=== PATIENT | female | born 1950 | race Caucasian/White ===

== ENCOUNTER 2017-07-14 14:22 | Inpatient (IN) | payer MEDICARE ==
[2017-07-14 15:29] LABS: Base Excess-Venous -12.5 mmol/L (-30.0-30.0); Bicarbonate (HCO3v) 16.3 mmol/L (1.0-85.0); Hemoglobin - Calc 19.3 g/dL (12.0-18.0); O2 Tension (PvO2) 23.4 mmHg (35.0-45.0); Potassium 6.2 mmol/L (3.4-4.7); T. Carbon Dioxide 17.7 mmol/L (1.0-85.0); pH (Venous) 7.157 (7.35-7.45); vO2 Saturation-calc 27.6 % (0.0-100.0)
--- NOTE | 2017-07-14 15:39 | RAD ---
FRONTAL VIEW CHEST: COMPARISON: 08/23/13. INDICATION: Hyperglycemia. FINDINGS: There is mild linear density at the lung bases indicating volume loss. Elevation of the right hemidi aphragm. Cardiac silhouette is stable. No additional significant interval change. There is partial ly imaged hardware at the cervicothoracic junction. IMPRESSION: 1. Probable bibasilar atelectasis. 2. Elevated right hemidiaphragm. POS: [facility]
[2017-07-14 15:48] LABS: Troponin I 0.197 ng/mL (< 0.028)
[2017-07-14 15:52] LABS: CKMB 7.2 ng/mL (0-6.6)
[2017-07-14 15:54] LABS: ALT (SGPT) 57 U/L (8-55); AST (SGOT) 129 U/L (5-34); Albumin 4.2 g/dL (3.4-4.8); Alkaline Phosphatase 113 U/L (40-150); Anion Gap 37 mmol/L (10-20); BUN (Urea Nitrogen) 45 mg/dL (9.8-20.1); Bilirubin, Total 1.1 mg/dL (0.2-1.2); CK (CPK) 913 U/L (29-168); Calc. Creatinine Clearance 0 mL/min (70-130); Calcium 10.2 mg/dL (7.8-10.44); Carbon Dioxide 12 mmol/L (23-31); Chloride 96 mmol/L (98-107); Estimated GFR-MDRD 10; Globulin 4.2 g/dL (2.4-3.5); Potassium 3.8 mmol/L (3.5-5.1); Protein, Total 8.4 g/dL (6.0-8.3); Sodium 141 mmol/L (136-145)
[2017-07-14 15:56] LABS: Glucose 752 mg/dL (80-115)
[2017-07-14 15:58] LABS: Lipase 3682 U/L (8-78)
--- NOTE | 2017-07-14 16:14 | CT ---
HEAD CT NONCONTRAST 07/14/17 INDICATION: Altered mental status and hyperglycemia. FINDINGS: There is no evidence of intracranial hemorrhage, mass effect or midline shift. Mild generalized paren chymal volume loss is present. There is slight compensatory dilatation of the ventricular system. Mil d scattered areas of hypoattenuation are present most consistent with minimal chronic microvascular i schemic disease. Punctate nonspecific focus of decreased density is seen at the posterior right idris sula which may be on the basis of a small area of gliosis. IMPRESSION: No acute intracranial hemorrhage, mass effect. Findings most consistent with mild chronic microvascular ischemic disease. POS: [facility]
[2017-07-14 16:23] LABS: #Basophils 0.2 thou/uL (0.0-0.2); #Lymphocytes 0.8 thou/uL (1.20-3.40); #Monocytes 0.4 thou/uL (0.11-0.59); #Neutrophils 8.6 thou/uL (1.40-6.50); %Basophils 1.7 % (0.0-1.0); %Eosinophils 0.2 % (0.0-10.0); %Lymphocytes 7.8 % (21.0-51.0); %Monocytes 4.2 % (0.0-10.0); Hemoglobin 15.5 g/dL (12.0-16.0); Mean Corpuscular HGB CONC 32.9 g/dL (32.0-36.0); Mean Corpuscular Hemoglobin 33.2 pg (27.0-31.0); Mean Platelet Volume 10.3 fL (7.4-10.4); Platelet Count 235 thou/uL (130-400); RBC Distribution Width 13.2 % (11.5-14.5); Red Blood Cell (RBC) Count 4.66 mill/uL (4.20-5.40)
--- NOTE | 2017-07-14 16:28 | RAD ---
CHEST ONE VIEW 07/14/17 HISTORY: Central line placement. COMPARISON: Chest one view 07/14/17. FINDINGS: Central venous catheter is present with tip in the inferior SVC. Fullness of the hilum is present ana aterally as well as pleural air space opacities. IMPRESSION: Satisfactory placement of central venous catheter without complication. POS: [facility]
[2017-07-14 16:29] LABS: INR-International Normal Ratio 1.2; Prothrombin Time 15.9 SEC (12.0-14.7)
[2017-07-14] MEDS ORDERED: Insulin Regular 100 units/100 ml in NS IVPB SCH (16:30)
[2017-07-14 16:45] LABS: D-Dimer Test 5.82 *mcg/mL (0.27-0.43)
[2017-07-14] MEDS ORDERED: Piperacillin/Tazobactam 4.5 GM in Sodium Chloride 0.9% 100 ML IVPB SCH (16:45)
--- NOTE | 2017-07-14 17:47 | ULT ---
ULTRASOUND GALLBLADDER 07/14/17 HISTORY: Pancreatitis. COMPARISON: None. FINDINGS: Pancreas is not well seen. Increased hepatic echotexture. Liver measures 17.2 cm in length. Main portal vein is patent. Antegrade flow. Common bile duct is nor mal in size. There is gallbladder sludge. The gallbladder wall is normal in thickness. No pericholecystic fluid. R ight kidney measures 11.8 x 4.9 cm x 5.2 cm without mass, hydronephrosis or abnormal calcifications. Sonographic Suresh's sign is noted be determined by the technologist. IMPRESSION: 1. No evidence of choledocholithiasis or acute cholecystitis. 2. Diffuse hepatic increased echotexture suggesting steatosis or hepatocellular disease. POS: [facility]
[2017-07-14] MEDS ORDERED: Enoxaparin Sodium 80 MG/0.8 ML SYRINGE ONE (18:09)
[2017-07-14 18:34] LABS: Bilirubin Moderate (Negative); Blood, Urine Large (Negative); Clarity CLOUDY (Clear); Glucose, Urine (Dipstick) >=1000 mg/dL (Negative); Leukocyte Small (Negative); Nitrite Negative (Negative); Protein, Urine (Dipstick) 100 mg/dL (Neg-Trace); Specific Gravity, Urine 1.029 (1.002-1.036); pH, Urine 5.5 (5.0-9.0)
[2017-07-14 18:38] LABS: Troponin I 0.156 ng/mL (< 0.028)
[2017-07-14 18:39] LABS: Bacteria/HPF 4+ HPF (None Seen); Squamous Epithelial 0-3 HPF (0-3)
[2017-07-14 18:40] LABS: Yeast-AUWi Flag 190.1 (0-25.0)
[2017-07-14 18:48] LABS: Hyaline Casts/LPF 0-3 HYALINE CAST LPF (0-3 Hyaline); Manual Microscopic Reviewed? No Path Casts Seen; Yeast-All Forms None Seen HPF (None Seen)
[2017-07-14] MEDS ORDERED: Ondansetron HCl/PF 4 MG/2 ML Vial ONE (18:51)
[2017-07-14] MEDS ORDERED: CCU Electrolyte Replacement 1 EACH IVPB ONE (19:15)
[2017-07-14] MEDS ORDERED: Dextrose 5 %-0.45 % NaCl 1,000 ML IV PRN (19:15)
[2017-07-14] MEDS ORDERED: Sodium Chloride 0.9% 1,000 ML IV PRN ×4 (19:15)
[2017-07-14] MEDS ORDERED: NS 0.9% w/ 20 MEQ KCL 1,000 ML IV PRN ×2 (19:15)
[2017-07-14] MEDS ORDERED: Ondansetron HCl/PF 4 MG/2 ML Vial IVP PRN (19:15)
[2017-07-14] MEDS ORDERED: Pantoprazole 40 MG VIAL ONE (19:46)
[2017-07-14] MEDS ORDERED: Promethazine HCl 25 MG/ML VIAL ONE (19:46)
[2017-07-14 19:57] LABS: Anion Gap 21 mmol/L (10-20); BUN (Urea Nitrogen) 46 mg/dL (9.8-20.1); Calc. Creatinine Clearance 0 mL/min (70-130); Calcium 8.6 mg/dL (7.8-10.44); Carbon Dioxide 17 mmol/L (23-31); Chloride 105 mmol/L (98-107); Estimated GFR-MDRD 12; Glucose 602 mg/dL (80-115); Potassium 3.2 mmol/L (3.5-5.1); Sodium 140 mmol/L (136-145)
[2017-07-14 19:58] LABS: Troponin I 0.161 ng/mL (< 0.028)
[2017-07-14] MEDS ORDERED: Morphine 4 MG/ML VIAL ONE (20:17)
[2017-07-14] MEDS ORDERED: Magnesium 2 GM/NS 0.9% 100 ML 2 GM in Premix Bag 1 BAG IVPB PRN (20:46)
[2017-07-14] MEDS ORDERED: Potassium Phosphate 9 MMOL in Sodium Chloride 0.9% 100 ML IVPB PRN (20:46)
[2017-07-14] MEDS ORDERED: Potassium Chloride 20 MEQ TAB PO PRN (20:46)
[2017-07-14] MEDS ORDERED: Potassium Phosphate 12 MMOL in Sodium Chloride 0.9% 250 ML 250 ML IV PRN (20:46)
[2017-07-14] MEDS ORDERED: Potassium Phosphate 15 MMOL in Sodium Chloride 0.9% 250 ML 250 ML IV PRN (20:46)
[2017-07-14] MEDS ORDERED: Magnesium Oxide 400 MG TAB PO PRN ×2 (20:46)
[2017-07-14] MEDS ORDERED: CCU ELECTROLYTE REPLACEMENT PROTOCOL FS PRN (20:46)
[2017-07-14] MEDS ORDERED: Potassium Chloride 40 MEQ in Sodium Chloride 0.9% 250 ML 250 ML IVPB PRN (20:46)
[2017-07-14] MEDS ORDERED: Potassium Chloride 40 MEQ in Premix Bag 1 BAG IVPB PRN (20:46)
[2017-07-14] MEDS ORDERED: Morphine 4 MG/ML VIAL SLOW IVP PRN (20:49)
[2017-07-14] MEDS ORDERED: Acetaminophen 1,000 MG in Premix Bag 1 BAG IVPB PRN (20:50)
[2017-07-14 20:54] LABS: Troponin I 0.152 ng/mL (< 0.028)
[2017-07-14 20:56] LABS: CKMB 9.5 ng/mL (0-6.6)
--- NOTE | 2017-07-14 22:00 | HP ---
DATE OF ADMISSION: 07/14/2017 TIME OF SERVICE: 1715 hours. CHIEF COMPLAINT: Altered mental status. HISTORY OF PRESENT ILLNESS: Ms. Troy is a 67-year-old Latin-[place]ian female with a history of atria l fibrillation, depression, fibromyalgia and apparently alcohol abuse who was [facility] for not acting herself and may having decreased level of conscious. She does have increased gluco se in the 700 range, she is also noted to have SVT in the field and altered mental status, so they ca lled her unstable into the DC cardioversion. After that, she was more arousable. She has been ill with flu-like illness for the last week or so with cough, phlegm and congestion. Pe r family, they have heard from her significant other that she has not really had any of the one that she normally drinks at night. She does have a history of chronic alcohol use. She has been drinking 5 to 10 glasses of wine or bee rs every day for a long time and really goes more than a day without a drink. Unknown she has any fevers or chills, the patient is unable to give any further history. PAST MEDICAL HISTORY: 1. Atrial fibrillation. 2. Fibromyalgia. 3. Depression. PAST SURGICAL HISTORY: Includes spinal fusion. HOME MEDICATIONS: Per the family's bag of medications they brought in: 1. Losartan/HCTZ 04/19.5 one p.o. b.i.d. 2. Lyrica 150 mg p.o. b.i.d. 3. Metoprolol tartrate 50 mg p.o. b.i.d. 4. Trazodone 50 mg p.o. at bedtime. 5. Duloxetine 60 mg daily. 6. Buspirone 10 mg p.o. b.i.d. 7. Tizanidine 4 mg p.o. t.i.d. p.r.n. for muscle spasm. 8. Ambien 10 mg p.o. at bedtime. ALLERGIES: NKDA. FAMILY HISTORY: Unknown. Family is with her, reports no history of clotting or bleeding disorder, n o immune dysfunction. SOCIAL HISTORY: History of alcohol use as above. She uses no tobacco, no history of IV drug use. REVIEW OF SYSTEMS: A 10-point review of systems not obtainable due to altered mental status. PHYSICAL EXAMINATION: VITAL SIGNS: Temperature on my evaluation 98.2, pulse 106, blood pressure 155/90, respiratory rate 3 0, satting 95% on 2 liters. Since then she has spiked a temperature to 100.8. GENERAL: She is somnolent, she does stare with arousal and groans. She is in no acute distress. HEENT: Normocephalic, atraumatic. Pupils equal and reactive to light bilaterally, mucous membranes are moist. NECK: Supple, without lymphadenopathy, JVD, or thyromegaly. She has normal carotid upstrokes. I do not appreciate bruits. LUNGS: Clear bilaterally. She has no wheezes, no rales or rhonchi. CARDIOVASCULAR: She is tachycardic, but regular. I do not appreciate murmurs. ABDOMEN: Diffusely tender. She does grimace and groans with a light or deep palpation. No signs or rebound. There is no rigidity. No involuntary guarding. EXTREMITIES: Show no cyanosis, no clubbing. She has had no edema. SKIN: Warm, moist, and well perfused. MUSCULOSKELETAL: Normal to inspection without any joint inflammation or effusions. NEUROLOGIC: Not really testable. She is moving all 4 extremities, withdraws from pain. She does st are to verbal stimuli. LABORATORY EVALUATION: Sodium of 141, potassium 3.8, chloride 96, bicarbonate 12, BUN 45, creatinine 4.46 and no history of kidney disease. Glucose was 752. Alkaline phosphatase was 129, AST elevated at 57, ALT normal. CBC showed a white count of 10, hemoglobin 15.5, hematocrit of 47.0, and platele t count was 230,000. She has 86% granulocytosis. D-dimer was elevated at 5.82. INR was 1.2. CK was elevated at 913, MB fraction elevated at 7.2, tro ponin I abnormal at 0.192. BNP was 292.6. Lipase elevated at 3682. Lactic acid 8.1 and anion gap was 37. VBG: pH of 7.16, pCO2 of 46, pO2 of 23 and bicarbonate of 16. Beta hydroxybutyrate was 1.00. RADIOGRAPHIC STUDIES: Chest x-ray showed elevated right hemidiaphragm, otherwise negative. She had a CT scan of the brain that was unremarkable. Repeat chest x-ray showed good placement of her right subclavian central venous catheter. ASSESSMENT AND PLAN: 1. Diabetic ketoacidosis protocol. Insulin drip, IV fluids, labs. We will convert to a step 2 and 3 as she progresses. 2. Severe metabolic acidosis. 3. Probable alcohol withdrawal: She has not had a drink in over a week. 4. Atrial flutter/atrial fibrillation, status post DC cardioversion in the field. She currently in sinus tachycardia. We will continue to watch. She does have a history in recent [facility] of being o n [place]. We will continue to watch on telemetry. 5. Metabolic encephalopathy: Likely secondary to diabetic ketoacidosis, we will continue to treat a nd then monitor. 6. Acute kidney injury: Creatinine of 4.46. Family relates no history of kidney problems in the ut st. We will continue hydration very closely and watch. May need to get Renal involved. The patient will be admitted to the IMCU.
[2017-07-14 23:39] LABS: Anion Gap 18 mmol/L (10-20); BUN (Urea Nitrogen) 47 mg/dL (9.8-20.1); Calc. Creatinine Clearance 0 mL/min (70-130); Calcium 8.3 mg/dL (7.8-10.44); Carbon Dioxide 19 mmol/L (23-31); Chloride 113 mmol/L (98-107); Estimated GFR-MDRD 13; Glucose 332 mg/dL (80-115); Potassium 3.1 mmol/L (3.5-5.1); Sodium 147 mmol/L (136-145)
[2017-07-14] MEDS ORDERED: Morphine 2 MG/ML SYRINGE ONE (23:45)
[2017-07-15] MEDS: D5 1/2 NS w/20 mEq KCL 1,000 ML IV PRN ×5 (00:46→21:01)
[2017-07-15 00:49] LABS: Lactic Acid 3.2 mmol/L (0.5-2.2)
[2017-07-15] MEDS: Sodium Chloride 0.9% 1,000 ML IV SCH (01:18)
[2017-07-15] MEDS: Famotidine/PF 20 mg/2ml Vial SLOW IVP SCH ×3 (01:20→20:49)
[2017-07-15 02:03] VITALS: BMI 29.1
[2017-07-15 05:06] LABS: Troponin I 0.235 ng/mL (< 0.028)
[2017-07-15 05:08] LABS: CKMB 8.8 ng/mL (0-6.6); Critical Call CKMBM RESULT DECREASING
[2017-07-15 05:10] LABS: ALT (SGPT) 71 U/L (8-55); AST (SGOT) 385 U/L (5-34); Albumin 2.9 g/dL (3.4-4.8); Alkaline Phosphatase 80 U/L (40-150); Anion Gap 16 mmol/L (10-20); BUN (Urea Nitrogen) 47 mg/dL (9.8-20.1); Calc. Creatinine Clearance 20 mL/min (70-130); Calcium 8.2 mg/dL (7.8-10.44); Carbon Dioxide 20 mmol/L (23-31); Cardiac Risk 5.6 (Less than 4.5); Chloride 114 mmol/L (98-107); Cholesterol 96 mg/dl (< 200 Desired); Estimated GFR-MDRD 13; Globulin 2.8 g/dL (2.4-3.5); Glucose 163 mg/dL (80-115); HDL Cholesterol 17 mg/dL (>60 Neg Risk); LDL Cholesterol, Calculated 42 mg/dL; Potassium 3.3 mmol/L (3.5-5.1); Protein, Total 5.7 g/dL (6.0-8.3); Sodium 147 mmol/L (136-145); Triglycerides 183 mg/dL (Less than 150)
[2017-07-15 05:18] LABS: Band 14 % (5-11); Hemoglobin 14.1 g/dL (12.0-16.0); Lymphocytes 11 % (21-51); MDiff Complete? YES; Mean Corpuscular HGB CONC 34.4 g/dL (32.0-36.0); Mean Corpuscular Hemoglobin 33.7 pg (27.0-31.0); Mean Corpuscular Volume 98.1 fl (81.0-99.0); Mean Platelet Volume 9.1 fL (7.4-10.4); Monocytes 5 % (0-10); Neutrophil 70 % (42-75); Platelet Count 194 thou/uL (130-400); Red Blood Cell (RBC) Count 4.17 mill/uL (4.20-5.40); White Blood Cell (WBC) Count 7.6 thou/uL (4.8-10.8)
[2017-07-15] MEDS ORDERED: FLU VACC TS2017-18 (>65YR) 0.5 ML SYRINGE IM ONE (09:00)
[2017-07-15] MEDS ORDERED: Prevnar 13-Val Conj/PF 0.5 ML SYRINGE IM ONE (09:00)
[2017-07-15] MEDS ORDERED: Diazepam 5 MG TAB PO PRN (10:27)
[2017-07-15] MEDS ORDERED: Diazepam 5 MG TAB PO SCH (11:00)
[2017-07-15] MEDS ORDERED: Thiamine HCl 200 MG/2 ML VIAL IM SCH (11:00)
[2017-07-15] MEDS ORDERED: hydrALAZINE 20 MG/ML VIAL SLOW IVP PRN (12:59)
--- NOTE | 2017-07-15 15:01 | CT ---
CT ABDOMEN AND PELVIS WITHOUT CONTRAST: Technique: Multiple axial tomograms were obtained through the abdomen and pelvis without IV enhanceme nt. History: Pancreatitis. Sepsis. Abdominal pain. FINDINGS: Images through the lung bases reveal bibasilar atelectasis or infiltrate, more prominent in the right posterior lung base. Liver and spleen are unremarkable. The pancreas shows no significant peripancreatic edema. Some minim al peripancreatic stranding is seen which may represent mild changes of pancreatitis. Gallbladder is slightly distended. Correlation with gallbladder ultrasound from last p.m. revealed no evidence of gallstones. The adrenal glands and kidneys are unremarkable. No hydronephrosis. Small bowel loops show mild nonspecific distention without dilatation. Small amount of free fluid is seen in the lower abdomen and pelvis. There is evidence of mural thickening in the region of the cecum. This is poorly evaluated due to non -distension and lack of contrast opacification. Aorta is normal caliber. No significant adenopathy is seen. There is mural thickening noted in the region of the gastric antrum and first portion of the duodenum . This may reflect inflammatory change from the pancreatitis. Images through the pelvis show unremarkable uterus and adnexa. Small amount of free fluid in the left pelvis. IMPRESSION: 1. Bibasilar atelectasis and/or infiltrates slightly more prominent on the right. 2. Very mild peripancreatic stranding may represent early changes of pancreatitis if clinical and lab oratory values indicate pancreatitis. 3. There is associated mural thickening in the region of the gastric antrum. This may be secondary to the pancreatic inflammation. 4. Abnormal density and question mural thickening in the region of the cecum. This should be cleared with elective colonoscopy. 5. Small amount of free fluid in the lower abdomen and pelvis. POS: [facility]
--- NOTE | 2017-07-15 16:11 | PDOC.PN ---
- Subjective Encounter Start Date: 07/15/17 Encounter Start Time: 08:40 -: non-verbal Pt more arousable, admits to abd pain. Maintained on D5NS. Afebrile until now , 101. NO CP, no reports or resp issues. occasional blood in stool. no other acute events notes - Objective Resuscitation Status: Resuscitation Status FULL:Full Resuscitation MAR Reviewed: Yes Vital Signs & Weight: Vital Signs (12 hours) Temp Pulse Resp BP Pulse Ox 07/15/17 15:30 98.6 F 117 H 20 178/100 H 97 07/15/17 11:41 99.7 F H 89 20 185/100 H 94 L 07/15/17 08:00 100.2 F H 115 H 19 97 07/15/17 07:00 100.2 F H 115 H 19 189/91 H 97 07/15/17 04:12 92 L Weight Weight 180 lb 11.2 oz I&O: 07/14/17 07/15/17 07/16/17 06:59 06:59 06:59 Intake Total 1540 1500 Output Total 160 210 Balance 1380 1290 Result Diagrams: 07/16/17 04:26 07/16/17 04:26 Additional Labs: Accuchecks 07/15/17 07/15/17 07/15/17 06:05 05:10 04:18 POC Glucose 133 H 134 H 153 H 07/15/17 07/15/17 07/15/17 03:07 01:53 00:43 POC Glucose 204 H 221 H 200 H 07/14/17 07/14/17 07/14/17 23:23 22:13 21:14 POC Glucose 281 H 351 H 414 H 07/14/17 07/14/17 07/14/17 20:15 19:00 17:57 POC Glucose 441 H 526 H Greater than 550 H* Radiology Reviewed by me: Yes EKG Reviewed by me: Yes Phys Exam - Physical Examination ill-appearing, arousable HEENT: PERRLA, moist MMs, sclera anicteric, oral pharynx no lesions Neck: no nodes, no JVD, supple, full ROM coarse bilaterla BS, basilar crackles, poor effort Cardiovascular: no significant murmur, no rub tachy, regular Gastrointestinal: soft, no distention, positive bowel sounds diffusely tender, no R/R/G Musculoskeletal: pulses present, edema present Neurological: moves all 4 limbs Lymphatic: no nodes Skin: no rash, normal turgor, cap refill <2 seconds Dx/Plan (1) DKA (diabetic ketoacidoses) Code(s): E13.10 - OTH DIABETES MELLITUS WITH KETOACIDOSIS WITHOUT COMA Status : Acute Qualifiers: Diabetes mellitus type: type 2 Diabetes mellitus complication detail: without coma Qualified Code(s): E11.10 - Type 2 diabetes mellitus with ketoacidosis without coma Comment: pt arousable, Gap close,d but not able totake po. CCM with D5NS, and insulin gtt. will image belly today. (2) Acute pancreatitis Code(s): K85.90 - ACUTE PANCREATITIS WITHOUT NECROSIS OR INFECTION, UNSP Status: Acute Qualifiers: Pancreatitis type: unspecified pancreatitis type Acute pancreatitis complication: unspecified Qualified Code(s): K85.90 - Acute pancreatitis without necrosis or infection, unspecified Comment: follow up on CT (3) ETOH abuse Code(s): F10.10 - ALCOHOL ABUSE, UNCOMPLICATED Status: Chronic (4) Alcohol withdrawal delirium Code(s): F10.231 - ALCOHOL DEPENDENCE WITH WITHDRAWAL DELIRIUM Status: Acute Comment: no drink in almost a week, ASE protocol initiated (5) SVT (supraventricular tachycardia) Code(s): I47.1 - SUPRAVENTRICULAR TACHYCARDIA Status: Resolved (6) Atrial fibrillation status post cardioversion Code(s): I48.91 - UNSPECIFIED ATRIAL FIBRILLATION Status: Resolved Comment: cardioverted in the field prior to EMS bringing to ER (7) Acute hypoxemic respiratory failure Code(s): J96.01 - ACUTE RESPIRATORY FAILURE WITH HYPOXIA Status: Acute (8) Severe sepsis Code(s): A41.9 - SEPSIS, UNSPECIFIED ORGANISM; R65.20 - SEVERE SEPSIS WITHOUT SEPTIC SHOCK Status: Acute Comment: Fever, tachycardia, elevated WBC, elevated lactic acid. (9) LGI bleed Code(s): K92.2 - GASTROINTESTINAL HEMORRHAGE, UNSPECIFIED Status: Acute Comment: episodic BRBPR. H/H stable, get serial H/H, GI consulted (10) BJ (acute kidney injury) Code(s): N17.9 - ACUTE KIDNEY FAILURE, UNSPECIFIED Status: Acute Comment: Cr down, CCM with hydration - Plan cont current plan of care, plan discussed w/ family, continue antibiotics, respiratory therapy, DVT proph w/SCDs * .
[2017-07-15 17:52] LABS: Hemoglobin 14.7 g/dL (12.0-16.0)
[2017-07-16 00:31] LABS: Hemoglobin 14.3 g/dL (12.0-16.0)
[2017-07-16] MEDS: D5 1/2 NS w/20 mEq KCL 1,000 ML IV PRN ×4 (01:40→20:37)
[2017-07-16] MEDS ORDERED: Diazepam 5 MG TAB PO PRN (04:00)
[2017-07-16 05:04] LABS: Hemoglobin 14.6 g/dL (12.0-16.0)
[2017-07-16 05:28] LABS: Anion Gap 14 mmol/L (10-20); BUN (Urea Nitrogen) 38 mg/dL (9.8-20.1); Calc. Creatinine Clearance 25 mL/min (70-130); Calcium 8.1 mg/dL (7.8-10.44); Carbon Dioxide 18 mmol/L (23-31); Chloride 112 mmol/L (98-107); Estimated GFR-MDRD 17; Glucose 177 mg/dL (80-115); Lipase 209 U/L (8-78); Potassium 3.7 mmol/L (3.5-5.1); Sodium 140 mmol/L (136-145)
[2017-07-16] MEDS ORDERED: Magnesium 2 GM/NS 0.9% 100 ML 2 GM in Premix Bag 1 BAG IVPB SCH (07:00)
[2017-07-16 07:28] LABS: Mean Corpuscular HGB CONC 31.4 g/dL (32.0-36.0); Mean Corpuscular Hemoglobin 31.1 pg (27.0-31.0); Mean Corpuscular Volume 99.2 fl (81.0-99.0); Mean Platelet Volume 9.2 fL (7.4-10.4); Platelet Count 149 thou/uL (130-400); RBC Distribution Width 13.6 % (11.5-14.5); Red Blood Cell (RBC) Count 4.55 mill/uL (4.20-5.40); White Blood Cell (WBC) Count 8.1 thou/uL (4.8-10.8)
[2017-07-16 07:39] LABS: Band 58 % (5-11); Lymphocytes 12 % (21-51); MDiff Complete? YES; Metamyelocyte 1 % (0-0); Monocytes 2 % (0-10); Neutrophil 22 % (42-75); Nucleated RBC 2 % (0); PLT Morphology Comment Appears Adequate; Reactive Lymphocytes 5 % (0-10); Vacuoles SLIGHT
[2017-07-16] MEDS: Famotidine/PF 20 mg/2ml Vial SLOW IVP SCH (09:02)
[2017-07-16] MEDS: Magnesium Oxide 400 MG TAB PO SCH (09:02)
[2017-07-16] MEDS: Multivitamin W/ Minerals 1 TAB PO SCH (09:02)
[2017-07-16] MEDS: Folic Acid 1 MG TAB PO SCH (09:02)
--- NOTE | 2017-07-16 12:59 | PDOC.PN ---
- Subjective Encounter Start Date: 07/16/17 Encounter Start Time: 09:40 Pt much more awake and alert, Ox3 today. Belly still hurts, somenausea, no vomiting. No CP, no SOb, no F/C. denies anxiety or agitation. More rectal bleeding last evening, serial h/H ordered, GI consult pending, no other events 10 point ROS performed and neg for all systems except as above Pt still on insulin gtt and D5NS+20K while NPO. - Objective Resuscitation Status: Resuscitation Status FULL:Full Resuscitation MAR Reviewed: Yes Vital Signs & Weight: Vital Signs (12 hours) Temp Pulse Resp BP Pulse Ox 07/16/17 11:21 98.0 F 96 18 153/95 H 92 L 07/16/17 07:52 99.1 F 113 H 20 160/100 H 95 07/16/17 03:57 97 07/16/17 03:39 99.5 F 128 H 20 145/97 H 97 Weight Weight 180 lb 11.2 oz I&O: 07/15/17 07/16/17 07/17/17 06:59 06:59 06:59 Intake Total 1540 6032 Output Total 160 2710 Balance 1380 3322 Result Diagrams: 07/16/17 04:26 07/16/17 04:26 Additional Labs: Accuchecks 07/16/17 07/16/17 07/16/17 12:28 11:15 10:21 POC Glucose 171 H 169 H 166 H 07/16/17 07/16/17 07/16/17 08:57 08:20 07:34 POC Glucose 176 H 164 H 162 H 07/16/17 07/16/17 07/16/17 06:06 05:02 04:15 POC Glucose 167 H 167 H 180 H 07/16/17 07/16/17 07/16/17 03:10 02:02 01:09 POC Glucose 191 H 195 H 203 H 07/16/17 07/15/17 07/15/17 00:08 23:04 22:06 POC Glucose 229 H 192 H 179 H 07/15/17 07/15/17 07/15/17 21:11 20:09 20:04 POC Glucose 156 H 146 H 138 H 07/15/17 07/15/17 07/15/17 19:11 18:21 17:19 POC Glucose 142 H 144 H 156 H 07/15/17 07/15/17 07/15/17 16:16 14:59 13:55 POC Glucose 173 H 192 H 210 H 07/15/17 07/15/17 07/15/17 13:06 12:22 11:12 POC Glucose 253 H 243 H 256 H 07/15/17 07/15/17 07/15/17 10:10 08:57 08:06 POC Glucose 257 H 235 H 215 H 07/15/17 07:09 POC Glucose 168 H Radiology Reviewed by me: Yes EKG Reviewed by me: Yes Phys Exam - Physical Examination Constitutional: NAD HEENT: PERRLA, moist MMs, sclera anicteric, oral pharynx no lesions Neck: no nodes, no JVD, supple, full ROM Respiratory: no wheezing, no rales, no rhonchi, clear to auscultation bilateral Cardiovascular: RRR, no significant murmur, no rub Gastrointestinal: soft, no distention, positive bowel sounds diffusely tender, no R/R/G Musculoskeletal: pulses present, edema present Neurological: non-focal, normal sensation, moves all 4 limbs Lymphatic: no nodes Psychiatric: normal affect, A&O x 3 Skin: no rash, normal turgor, cap refill <2 seconds Dx/Plan (1) DKA (diabetic ketoacidoses) Code(s): E13.10 - OTH DIABETES MELLITUS WITH KETOACIDOSIS WITHOUT COMA Status : Acute Qualifiers: Diabetes mellitus type: type 2 Diabetes mellitus complication detail: without coma Qualified Code(s): E11.10 - Type 2 diabetes mellitus with ketoacidosis without coma Comment: pt much more awake and alert. Gap closed, but not able to take po due to pancreatitis. CCM with D5NS, and insulin gtt. Belly imaging neg for signs of cirrhosis, pancreatitis seen, no other changes (2) Acute pancreatitis Code(s): K85.90 - ACUTE PANCREATITIS WITHOUT NECROSIS OR INFECTION, UNSP Status: Acute Qualifiers: Pancreatitis type: unspecified pancreatitis type Acute pancreatitis complication: unspecified Qualified Code(s): K85.90 - Acute pancreatitis without necrosis or infection, unspecified Comment: Seen on CT, Lipase 3600 to 1500 to 200 today. NPO, recheck lipase, clears probably tomorrow (3) ETOH abuse Code(s): F10.10 - ALCOHOL ABUSE, UNCOMPLICATED Status: Chronic (4) Alcohol withdrawal delirium Code(s): F10.231 - ALCOHOL DEPENDENCE WITH WITHDRAWAL DELIRIUM Status: Acute Comment: no drink in almost a week, ASE protocol initiated (5) SVT (supraventricular tachycardia) Code(s): I47.1 - SUPRAVENTRICULAR TACHYCARDIA Status: Resolved (6) Atrial fibrillation status post cardioversion Code(s): I48.91 - UNSPECIFIED ATRIAL FIBRILLATION Status: Resolved Comment: cardioverted in the field prior to EMS bringing to ER (7) Acute hypoxemic respiratory failure Code(s): J96.01 - ACUTE RESPIRATORY FAILURE WITH HYPOXIA Status: Acute (8) Severe sepsis Code(s): A41.9 - SEPSIS, UNSPECIFIED ORGANISM; R65.20 - SEVERE SEPSIS WITHOUT SEPTIC SHOCK Status: Resolved Comment: Fever, tachycardia, elevated WBC, elevated lactic acid. (9) LGI bleed Code(s): K92.2 - GASTROINTESTINAL HEMORRHAGE, UNSPECIFIED Status: Acute Comment: episodic BRBPR. H/H stable, get serial H/H, GI consulted (10) BJ (acute kidney injury) Code(s): N17.9 - ACUTE KIDNEY FAILURE, UNSPECIFIED Status: Acute Comment: Cr down, CCM with hydration - Plan cont current plan of care, PT/OT, respiratory therapy * .
[2017-07-16] MEDS: Octreotide Acetate 1,250 MCG in Sodium Chloride 0.9% 250 ML 250 ML IVPB SCH (20:39)
[2017-07-16] MEDS: Pantoprazole 80 MG in Sodium Chloride 0.9% 100 ML IVPB SCH (21:12)
--- NOTE | 2017-07-16 23:04 | CON ---
DATE OF CONSULTATION: 07/16/2017 REASON FOR CONSULTATION: Hematochezia. CONSULTING PHYSICIAN: Adán Pagan MD HISTORY OF PRESENT ILLNESS: The patient is a 67-year-old female with past medical history of atrial fibrillation, fibromyalgia, and depression presenting with diabetic ketoacidosis, sepsis, and hematochezia. She states she was in her usual state of health until approximately 1 week ago when she began to experience increased cough and nasal congestion. Over the next few days, she said that she had worsening of her general status, stating "I guess I got sick. " At that point she started to experience increased nausea, vomiting, as well as increased abdominal pain. Her abdominal pain was centered in the mid epigastric/periumbilical region and characterized as sharp and stabbing in nature, severity of 8/10 with no clear alleviating or exacerbating factors. At that point, she sought medical assistance with admission into the [facility] , where she was noted to be in diabetic ketoacidosis in addition to displaying a sepsis-type picture and ultimately admitted. Prior to admission, she said that she would have appearance of bright red blood per rectum, characterized as a minimal amount of blood present only on the toilet paper. She was also having approximately 2-3 semisolid bowel movements per day with only episodic occurrences of this hematochezia. However, since admission, she has had multiple bowel movements with darker colored blood and possible melena while in the ICU (per nursing staff). Currently, she denies any nausea, vomiting, fevers , chills, constipation, shortness of breath, odynophagia, or dysphagia. REVIEW OF SYSTEMS: A 12-category review of systems was obtained with all responses negative except for the pertinent positives as listed in the HPI. PAST MEDICAL HISTORY: As per HPI. PAST SURGICAL HISTORY: Spinal fusion. FAMILY HISTORY: Denies any GI malignancies. SOCIAL HISTORY: Denies any tobacco or illicit drug use. However, she drinks approximately 5-10 drinks daily. OUTPATIENT MEDICATIONS: Losartan/hydrochlorothiazide 100/12.5 mg b.i.d., Lyrica 150 mg b.i.d., metoprolol 50 mg twice daily, Trazodone 50 mg at bedtime, duloxetine 60 mg daily, buspirone 10 mg twice daily, tizanidine 4 mg 3 times daily as needed for muscle spasm, Ambien 10 mg at every night. ALLERGIES: No known drug allergies. PHYSICAL EXAMINATION: VITAL SIGNS: Temperature 98.5, pulse 109, blood pressure 173/98, respiratory rate 19, satting 94% on room air. GENERAL: The patient is in mild distress, but otherwise lying comfortably in bed. She is alert and oriented x3. HEENT: Pupils equal, round, and reactive to light. NECK: Supple. No JVD noted. CARDIOVASCULAR: Regular rate and rhythm with a tachycardic rate. No discernible gallops or rubs. RESPIRATORY: Clear to auscultation bilaterally with no discernible wheezes or rales. ABDOMEN: Normoactive bowel sounds. Soft, nondistended. Tenderness to palpation in all abdominal quadrants, but increased tenderness to palpation in the midepigastric and periumbilical regions. No hepatosplenomegaly noted. EXTREMITIES: No cyanosis, clubbing, or edema. LABORATORY DATA: CBC with a white blood cell count of 8.1, hemoglobin 14.6, hematocrit 43.9, platelet 149. Chemistry with a sodium of 140, potassium 3.7, chloride 112, carbon dioxide 18, BUN 38, creatinine 2.82, glucose 177, AST 385, ALT 71, alkaline phosphatase 80, total bilirubin 1. BNP 292. Lipase on admission 3682. Triglycerides 183. Urinalysis was consistent with a urinary tract infection. BISAP score of 4. IMAGING DATA: Abdominal ultrasound obtained on 07/14/2017 showing increased hepatic echotexture, but no mention of cirrhotic morphology. No pericholecystic fluid. No evidence of choledocholithiasis or acute cholecystitis. Increased echotexture of the liver suggesting steatosis or hepatocellular disease. CT abdomen and pelvis obtained on 07/15/2017 showed no significant peripancreatic edema, but minimal amounts of peripancreatic stranding representing mild changes of pancreatitis observed. Small bowel loop showed mild nonspecific distention without dilation. There was also evidence of mural thickening of the region of the cecum, although this area was poorly visualized due to nondistention and lack of oral contrast. There was also mural thickening noted in the region of the gastric antrum and the first portion of the duodenum, which could reflect inflammatory change from the pancreatitis. ASSESSMENT AND PLAN: The patient is a 67-year-old female with past medical history of atrial fibrillation, fibromyalgia, depression presenting with diabetic ketoacidosis, probable urosepsis, and pancreatitis. Pancreatitis The patient is presenting with an extensive alcohol use history, drinking approximately 5-10 drinks per day and had been doing this for many years. At this point, she is presenting with increased midepigastric and periumbilical abdominal pain as well as a lipase of 3000 consistent with a diagnosis of pancreatitis. CT abdomen and pelvis also concurs with these findings with minimal peripancreatic stranding surrounding the pancreas itself. Given her current clinical status and concurrent medical diagnoses, it is difficult to discern her BISAP score secondary to urosepsis and diabetic ketoacidosis. But currently her BISAP score is 4, which carries an increased risk of mortality. Recommendations: 1. We would continue IV fluids at 250 mL per hour as you are doing. 2. Pain control per primary team. 3. We would continue antibiotics for urinary tract infection and probable urosepsis. If the patient continues to have fevers in approximately 5-7 days, we would consider repeat CT abdomen and pelvis with specific visualization of the pancreas for possible pancreatic necrosis. Pancreatic necrosis is not seen at this time. Hematochezia The patient is presenting with a recent history of minimal bright red blood per rectum noticed only on the toilet paper when wiping prior to admission. However , since admission, she has been noticed by nursing staff to have darker blood concerning for melena. However, her H&H have not changed significantly from admission despite the occurrence of the darker colored stools concerning for the presence of upper GI bleeding. Given her extensive alcohol abuse history, the prospect of cirrhosis remains within the differential and possibly upper GI bleeding source from esophageal varices. At this time, endoscopic evaluation is indicated; however, with her stable H&H and with the concurrent treatment of diabetic ketoacidosis and acute pancreatitis, a tincture of time is needed prior to endoscopic evaluation. Given her extensive alcohol abuse history, she could also be exhibiting signs of alcohol withdrawal, in which case if given a stable H&H, endoscopic evaluation can be delayed. Recommendations: 1. We would continue to trend H&H and transfuse as necessary to maintain an H& H of 01/26. 2. We would place the patient on octreotide drip for possible cirrhosis and formation of esophageal varices. 3. We would place the patient on PPI drip given possibility of upper gastrointestinal bleeding source. 4. We will continue to monitor daily for signs when endoscopic evaluation can be performed safely. We will continue to monitor. Please call with any questions. MTDD
[2017-07-17] MEDS: D5 1/2 NS w/20 mEq KCL 1,000 ML IV PRN ×2 (01:23→05:40)
[2017-07-17 05:19] LABS: ALT (SGPT) 48 U/L (8-55); AST (SGOT) 49 U/L (5-34); Albumin 2.6 g/dL (3.4-4.8); Alkaline Phosphatase 85 U/L (40-150); Anion Gap 13 mmol/L (10-20); BUN (Urea Nitrogen) 25 mg/dL (9.8-20.1); Bilirubin, Total 1.1 mg/dL (0.2-1.2); Calc. Creatinine Clearance 36 mL/min (70-130); Calcium 8.1 mg/dL (7.8-10.44); Carbon Dioxide 15 mmol/L (23-31); Chloride 112 mmol/L (98-107); Estimated GFR-MDRD 25; Glucose 232 mg/dL (80-115); Lipase 104 U/L (8-78); Magnesium 1.8 mg/dL (1.6-2.6); Potassium 3.8 mmol/L (3.5-5.1); Protein, Total 5.6 g/dL (6.0-8.3); Sodium 136 mmol/L (136-145)
[2017-07-17 05:49] LABS: Band 18 % (5-11); Hemoglobin 14.5 g/dL (12.0-16.0); Lymphocytes 8 % (21-51); MDiff Complete? YES; Mean Corpuscular HGB CONC 32.7 g/dL (32.0-36.0); Mean Platelet Volume 9.9 fL (7.4-10.4); Monocytes 5 % (0-10); Neutrophil 69 % (42-75); Platelet Count 153 thou/uL (130-400); RBC Distribution Width 13.8 % (11.5-14.5); RBC Morphology Normal; White Blood Cell (WBC) Count 10.2 thou/uL (4.8-10.8)
[2017-07-17] MEDS: Pantoprazole 80 MG in Sodium Chloride 0.9% 100 ML IVPB SCH (06:25)
[2017-07-17] MEDS: Multivitamin W/ Minerals 1 TAB PO SCH (08:41)
[2017-07-17] MEDS: Magnesium Oxide 400 MG TAB PO SCH (08:41)
[2017-07-17] MEDS: Folic Acid 1 MG TAB PO SCH (08:41)
[2017-07-17] MEDS ORDERED: Sodium Chloride 0.9% 1,000 ML IV SCH (13:15)
--- NOTE | 2017-07-17 14:59 | PQF ---
DATE: 07-20-17 ATTN: DR. DIANE MIMS / DR. CORNEL DEL ROSARIO Please exercise your independent, professional judgment in responding to the clarification form. Clinical indicators are provided on the bottom of this form for your review Please check appropriate box(s): [ ] Sepsis due to UTI [ ] Sepsis not due to UTI [ ] Contaminated urine specimen without UTI [ ] Other diagnosis [ ] Unable to determine In addition, please specify: Present on Admission (POA): [ ] Yes [ ] No [ ] Unable to determine For continuity of documentation, please document condition throughout progress notes and discharge summary. Thank You. CLINICAL INDICATORS - SIGNS / SYMPTOMS / LABS ER DIAGNOSIS: DKA, HYPOTHERMIA, NEW ONSET A FIB S/P CARDIOVERSION, PANCREATITIS, SEPSIS, SYNCOPE CONSULT NOTE DR. JUVENAL CORTEZ 07-16-17: WE WOULD CONTINUE ANTIBIOTICS FOR URINARY TRACT INFECTION AND PROBABLE UROSEPSIS. URINE 18: URINE PROTEIN: 100 H URINE GLUCOSE: >1000 H URINE BLOOD: LARGE H URINE KETONES: TRACE H UR LEUKOCYTE ESTERASE: SMALL H URINE WBC: GREATER THAN 50-TNTC H URINE BACTERIA: 4+ H RISK FACTORS: CONSULT NOTE DR. JUVENAL CORTEZ 07-16-17: WE WOULD CONTINUE ANTIBIOTICS FOR URINARY TRACT INFECTION AND PROBABLE UROSEPSIS. ER DOCUMENTATION: SCHMITZ CATHETER WITH URINOMETER INSERTED USING A 16FR CATHETER, UNABLE TO COLLECT FOR SAMPLE WITH INITIAL INSERTION TREATMENT: LEVAQUIN, ZOSYN, IVF (This form is maintained as a part of the permanent medical record) 2014 [employer]. All Rights Reserved [email or web address] Office: [phone] [facility] HOSPITALKaterin
--- NOTE | 2017-07-17 15:04 | PDOC.PN ---
- Subjective Encounter Start Date: 07/17/17 Encounter Start Time: 11:10 Feeling better, less to almost no abd pain. Insulin gtt coming down, lipase almost normal, no f/C, no n/V/d/C, no CP, no SOB. Seen by GI last evening, watching H/H. staying normal 10 point ROS performed and neg for all systems except as above. - Objective Resuscitation Status: Resuscitation Status FULL:Full Resuscitation MAR Reviewed: Yes Vital Signs & Weight: Vital Signs (12 hours) Temp Pulse Resp BP Pulse Ox 07/17/17 11:00 97.7 F 88 20 179/101 H 97 07/17/17 08:00 97.7 F 103 H 18 94 L 07/17/17 07:10 97.7 F 103 H 18 156/106 H 89 L 07/17/17 04:30 97.7 F 109 H 20 148/90 H 98 07/17/17 04:00 97.7 F 100 20 169/103 H 97 Weight Weight 187 lb 3.2 oz I&O: 07/16/17 07/17/17 07/18/17 06:59 06:59 06:59 Intake Total 6032 2932 1708 Output Total 2710 1530 550 Balance 3322 1402 1158 Result Diagrams: 07/17/17 04:40 07/17/17 04:40 Additional Labs: Accuchecks 07/17/17 07/17/17 07/17/17 10:08 09:15 08:17 POC Glucose 140 H 157 H 171 H 07/17/17 07/17/17 07/17/17 07:00 06:18 05:03 POC Glucose 184 H 186 H 219 H 07/17/17 07/17/17 07/17/17 04:03 03:03 02:12 POC Glucose 223 H 199 H 164 H 07/17/17 07/17/17 07/16/17 01:05 00:03 23:07 POC Glucose 141 H 149 H 125 H 07/16/17 07/16/17 07/16/17 22:00 21:07 20:06 POC Glucose 152 H 149 H 160 H 07/16/17 07/16/17 07/16/17 19:03 17:55 16:55 POC Glucose 175 H 168 H 165 H 07/16/17 07/16/17 16:07 15:30 POC Glucose 169 H 173 H Radiology Reviewed by me: Yes EKG Reviewed by me: Yes Phys Exam - Physical Examination Constitutional: NAD HEENT: PERRLA, moist MMs, sclera anicteric, oral pharynx no lesions Neck: no nodes, no JVD, supple, full ROM Respiratory: no wheezing, no rales, no rhonchi, clear to auscultation bilateral Cardiovascular: RRR, no significant murmur, no rub Gastrointestinal: soft, non-tender, no distention, positive bowel sounds Musculoskeletal: pulses present, edema present Neurological: non-focal, normal sensation, moves all 4 limbs Lymphatic: no nodes Psychiatric: normal affect, A&O x 3 Skin: no rash, normal turgor, cap refill <2 seconds Dx/Plan (1) DKA (diabetic ketoacidoses) Code(s): E13.10 - OTH DIABETES MELLITUS WITH KETOACIDOSIS WITHOUT COMA Status : Acute Qualifiers: Diabetes mellitus type: type 2 Diabetes mellitus complication detail: without coma Qualified Code(s): E11.10 - Type 2 diabetes mellitus with ketoacidosis without coma Comment: pt much more awake and alert. Gap closed, but not able to take po due to pancreatitis. CCM with D5NS, and insulin gtt. Belly imaging neg for signs of cirrhosis, pancreatitis seen, no other changes (2) Acute pancreatitis Code(s): K85.90 - ACUTE PANCREATITIS WITHOUT NECROSIS OR INFECTION, UNSP Status: Acute Qualifiers: Pancreatitis type: unspecified pancreatitis type Acute pancreatitis complication: unspecified Qualified Code(s): K85.90 - Acute pancreatitis without necrosis or infection, unspecified Comment: Seen on CT, Lipase 3600 to 1500 to 200 today. NPO, recheck lipase, clears probably tomorrow (3) ETOH abuse Code(s): F10.10 - ALCOHOL ABUSE, UNCOMPLICATED Status: Chronic (4) Alcohol withdrawal delirium Code(s): F10.231 - ALCOHOL DEPENDENCE WITH WITHDRAWAL DELIRIUM Status: Acute Comment: no drink in almost a week, ASE protocol initiated (5) SVT (supraventricular tachycardia) Code(s): I47.1 - SUPRAVENTRICULAR TACHYCARDIA Status: Resolved (6) Atrial fibrillation status post cardioversion Code(s): I48.91 - UNSPECIFIED ATRIAL FIBRILLATION Status: Resolved Comment: cardioverted in the field prior to EMS bringing to ER (7) Acute hypoxemic respiratory failure Code(s): J96.01 - ACUTE RESPIRATORY FAILURE WITH HYPOXIA Status: Resolved Comment: off O2, breathing good (8) Severe sepsis Code(s): A41.9 - SEPSIS, UNSPECIFIED ORGANISM; R65.20 - SEVERE SEPSIS WITHOUT SEPTIC SHOCK Status: Resolved Comment: Fever, tachycardia, elevated WBC, elevated lactic acid. (9) LGI bleed Code(s): K92.2 - GASTROINTESTINAL HEMORRHAGE, UNSPECIFIED Status: Acute Comment: episodic BRBPR. H/H stable, get serial H/H, GI consulted. watching, can transfer to floor i think if hes okay (10) BJ (acute kidney injury) Code(s): N17.9 - ACUTE KIDNEY FAILURE, UNSPECIFIED Status: Acute Comment: Cr down, CCM with hydration - Plan cont current plan of care, continue antibiotics, PT/OT, respiratory therapy, out of bed/ambulate * .
[2017-07-17] MEDS ORDERED: Furosemide 20 MG/2 ML VIAL SLOW IVP SCH (16:00)
[2017-07-17] MEDS ORDERED: Magnesium 2 GM/NS 0.9% 100 ML 2 GM in Premix Bag 1 BAG IVPB SCH (16:00)
[2017-07-17] MEDS ORDERED: GoLYTELY 4,000 ml Bottle PO SCH (17:00)
--- NOTE | 2017-07-17 19:17 | PRG ---
DATE OF SERVICE: 07/17/2017 REASON FOR CONSULTATION: GI bleeding. SUBJECTIVE: Overnight, the patient doing much better this morning with no acute events or problems overnight. She states that her abdominal pain has significantly improved more of dull ache. Currently denies any nausea, vomiting , fevers, chills, shortness of breath, odynophagia, or dysphagia; however, she continues to have bright red blood per rectum, intermixed with darker colored stools per nursing staff, concerning for GI bleeding. OBJECTIVE: VITAL SIGNS: Temperature 97.7, pulse 88, blood pressure 179/101, respiratory rate 20, satting 97% on room air. GENERAL: The patient in no acute distress. Alert and oriented x4. NECK: Supple. No JVD noted. CARDIOVASCULAR: Regular rate and rhythm with no discernible murmurs, gallops or rubs. RESPIRATORY: Clear to auscultation bilaterally with no discernible wheezes or rales. ABDOMEN: Normoactive bowel sounds, soft, nondistended, mild tenderness to palpation in the midepigastric and periumbilical regions. EXTREMITIES: No cyanosis, clubbing or edema. LABORATORY DATA: CBC with a white blood cell count of 10.2, hemoglobin 14.5, hematocrit 44.4, platelets 153. Chemistry with a sodium of 136, potassium 3.8, chloride 112, CO2 of 15, BUN 25, creatinine 1.96, glucose 232. IMAGING STUDIES: No current GI imaging studies available for review. ASSESSMENT AND PLAN: The patient is a 67-year-old female with past medical history of atrial fibrillation with mild fibromyalgia, depression, presenting with diabetic ketoacidosis, probable urosepsis and pancreatitis. Pancreatitis: The patient is presenting with an extensive alcohol use history, drinking approximately 5-10 drinks per day and has been doing this for many years. At this point, she is presenting with increased midepigastric and periumbilical abdominal pain as well as a lipase over 3000 consistent with a diagnosis of pancreatitis. CT pelvis also concur with this diagnosis with minimal peripancreatic stranding surrounding the pancreas itself. Currently with improving general health status with removal of the insulin drip earlier today, although her BISAP score continues to be elevated which does carry an elevated risk of mortality. Recommendations: 1. We would continue IV fluids as you are doing. 2. Pain control per primary team. 3. We would continue antibiotics for urinary tract infection and probable urosepsis. GI bleeding The patient presenting with a recent history of minimal bright red blood per rectum noticed only on the toilet paper when wiping prior to admission; however , since admission, she has been noted to have multiple bright red and darker colored bowel movements, concerning for both hematochezia and melena. Her H&H has not significantly changed since admission, which is not indicative of active gastrointestinal bleeding from either upper or lower GI source. Given her extensive alcohol abuse history, the prospect of cirrhosis does remain within the differential and possible upper gastrointestinal bleeding source with varix formation (less likely). With improvement of her current clinical status and stable H&H, she will need endoscopic evaluation for determination of the source of GI bleeding. Recommendations: 1. Continue to trend H&H and transfuse as necessary to maintain an H&H of 7. 2. We would continue the patient on octreotide drip (total therapy of 72 hours ) for possible cirrhosis and formation of esophageal varices. 3. Continue proton-pump inhibitor drip, given the possibility of upper gastrointestinal bleeding. 4. We will plan for both EGD and colonoscopy tomorrow for determination of possible GI bleeding source. Please make the patient n.p.o. at midnight with administration of GoLYTELY tonight as well. We will continue to monitor. Please call with any questions. MTDD
--- NOTE | 2017-07-17 21:37 | CON ---
DATE OF CONSULTATION: 07/17/2017 REASON FOR CONSULTATION: [facility] patient. SERVICE: Pulmonary service. HISTORY OF PRESENT ILLNESS: The patient is a 67-year-old white female with past medical history sign ificant for alcohol overuse. She was in her usual state of health when she had onset of abdominal di scomfort. She presented to the Emergency Department via EMS. She was initially found to be in atria l fibrillation with RVR and altered. As such, she was cardioverted in the field. She had elevated g lucose and was brought to the emergency department. She was found to be in DKA. She has been in the [facility] for the past 2 days on an insulin drip. Her gap closed. Her abdominal discomfort has resolved . She is yet to take any p.o. The patient remains n.p.o. Otherwise, she has made a significant rec overy over the past 48 hours. PAST MEDICAL HISTORY: 1. Atrial fibrillation. 2. Fibromyalgia. 3. Major depressive disorder. 4. Type 2 diabetes mellitus, new diagnosis. PAST SURGICAL HISTORY: Spinal fusion. ALLERGIES: No known drug allergies. MEDICATIONS LIST: List of her inpatient medications were reviewed. No specific updates were made. Hydrochlorothiazide is known to cause pancreatitis and will be considered for discontinuation on disc harge. FAMILY HISTORY: Noncontributory. SOCIAL HISTORY: She uses significant amount of alcohol. She drinks more than a box of wine on daily basis and perhaps some other types of beer. She does not use any illicit drugs or tobacco. She has no exposure to chemicals, dust, asbestos or tuberculosis. REVIEW OF SYSTEMS: General, head, ears, eyes, nose, throat, cardiovascular, respiratory, GI, , mus culoskeletal, neurologic and skin is negative except as mentioned in the HPI. PHYSICAL EXAMINATION: VITAL SIGNS: Afebrile, pulse 88, blood pressure 179/101, respirations 20, saturation 97% on 2 liters nasal cannula. HEENT: Normocephalic, atraumatic. Sclerae are white, conjunctivae pink. Oral and nasal mucosa is m oist without lesions. LUNGS: Excellent air entry. Crackles are present. No prolonged expiratory phase or wheezing is kel reciated. HEART: Normal rate, regular. ABDOMEN: Soft, nontender, nondistended. Bowel sounds are now positive. MUSCULOSKELETAL: No cyanosis or clubbing. There is trace 1+ pitting in the bilateral lower extremit ies. GENITOURINARY: Vigil catheter in place. NEUROLOGIC: Grossly nonfocal. LABORATORY DATA: WBC 10.2, hemoglobin 14.5 and roughly stable for this hospital stay. Platelets 153 ,000. Band count is now dropping to 18%. INR 1.2, D-dimer 5.28. PH 7.157, pCO2 of 46. Creatinine 1.96 and gently trending downward. BUN 25, basic metabolic profile is otherwise unremarkable. Liver function studies including AST and ALT are down trending. Alkaline phosphatase is normal. Lipase i s now normal. Urinalysis is positive for glucose, ketones, blood, and large amounts of white blood c ell. Beta hydroxybutyric acid has resolved. Blood cultures x2, urine culture, influenza is negative . IMAGIN. CT of the abdomen and pelvis identifies characteristics consistent with acute pancreatitis. 2. Abdominal ultrasound demonstrates no evidence of choledocholithiasis. No evidence of cholecystit is. Steatosis is suggested on the hepatic imaging. 3. CT of the brain demonstrates no acute cardiopulmonary abnormality. 4. Chest x-ray demonstrates no acute cardiothoracic abnormality. There is probably elevation of the right hemidiaphragm with bibasilar atelectasis, however. ASSESSMENT: 1. Acute hypoxic respiratory failure. 2. Acute pancreatitis. 3. Diabetic ketoacidosis. 4. Type 2 diabetes mellitus, new onset. 5. Alcohol abuse. PLAN: The patient is touch volume overloaded on presentation, is 7 liters up for this hospital stay. I will provide her with a single dose of Lasix. We will give her full diet as her abdominal discom fort has resolved. From my perspective, she is stable for transition to the floor. Pulmonary Critic al Care will continue to follow while she remains in this location.
[2017-07-18] MEDS: Pantoprazole 80 MG in Sodium Chloride 0.9% 100 ML IVPB SCH ×2 (03:29→19:30)
[2017-07-18 04:43] LABS: Hemoglobin 12.8 g/dL (12.0-16.0)
[2017-07-18 04:52] LABS: Anion Gap 12 mmol/L (10-20); BUN (Urea Nitrogen) 22 mg/dL (9.8-20.1); Calc. Creatinine Clearance 44 mL/min (70-130); Calcium 8.1 mg/dL (7.8-10.44); Carbon Dioxide 20 mmol/L (23-31); Chloride 112 mmol/L (98-107); Estimated GFR-MDRD 30; Glucose 217 mg/dL (80-115); Magnesium 1.9 mg/dL (1.6-2.6); Potassium 3.8 mmol/L (3.5-5.1); Sodium 140 mmol/L (136-145)
[2017-07-18] MEDS: Multivitamin W/ Minerals 1 TAB PO SCH (10:16)
[2017-07-18] MEDS: Folic Acid 1 MG TAB PO SCH (10:16)
[2017-07-18] MEDS ORDERED: Metoprolol Tartrate 50 MG TAB PO SCH (10:45)
[2017-07-18] MEDS ORDERED: Losartan 25 MG TAB PO SCH (10:45)
[2017-07-18] MEDS ORDERED: Hydrochlorothiazide 25 MG TAB PO SCH (10:45)
[2017-07-18] MEDS ORDERED: Furosemide 20 MG/2 ML VIAL SLOW IVP SCH (13:00)
--- NOTE | 2017-07-18 13:08 | PRG ---
DATE OF SERVICE: 07/18/2017 SERVICE: Pulmonary Medicine INTERVAL HISTORY: The patient is doing really well from a respiratory standpoint. Her abdominal audi n is no longer. She is tolerating liquid diet. Otherwise, there has been no interval change in her condition. She had no overnight events. PHYSICAL EXAMINATION: VITAL SIGNS: Afebrile, pulse 95, blood pressure 173/104, respirations 18, saturation 100% on 3 liter s nasal cannula. GENERAL: The patient is awake, alert, in no apparent distress. LUNGS: Excellent air entry. There is no prolonged expiratory phase or wheezing. Crackles are prese nt HEART: Normal rate, regular. ABDOMEN: Soft, nontender, nondistended. Bowel sounds are positive. MUSCULOSKELETAL: No cyanosis or clubbing. There is 1+ pitting in the bilateral lower extremities. GENITOURINARY: Vigil catheter in place. NEUROLOGIC: Grossly nonfocal. In's and outs are +600 over the last 24 hours despite being a little volume down with the Lasix. LABORATORY DATA: Hemoglobin 12.8 and dropping by 1 gram. Creatinine 1.68 and downtrending, BUN 22. Anion gap 12, bicarbonate has improved to 20. Chloride 112, sodium 140 and trending upward. Magnes ium is 1.9. ASSESSMENT: 1. Acute hypoxic respiratory failure, improving. 2. Acute pancreatitis, resolving. 3. Diabetic ketoacidosis. 4. Type 2 diabetes mellitus, new onset. 5. Alcohol abuse. 6. Volume overload secondary to appropriate volume resuscitation. PLAN: We will give her an additional dose of Lasix today and I will repeat tomorrow morning. This i s likely why her blood pressure has gone up so significantly. From a purely respiratory perspective, she remains stable for transition to the medical unit. She will have her colonoscopy today. We dave l follow up on the results of this thing.
--- NOTE | 2017-07-18 14:01 | PDOC.PN ---
- Subjective Encounter Start Date: 07/18/17 Encounter Start Time: 06:20 Pt feeling better. No abd pain, no N/V/D/C, no CP or SOB, no angitation or anxiety. BP p a little. To go for EGD/Colon with Dr khoury today. eduar clear diet overnight. 10 point ROS performed and neg for all systems except as per HPI - Objective Resuscitation Status: Resuscitation Status FULL:Full Resuscitation MAR Reviewed: Yes Vital Signs & Weight: Vital Signs (12 hours) Temp Pulse Resp BP Pulse Ox 07/18/17 11:00 98.5 F 103 H 20 187/96 H 07/18/17 07:52 97.9 F 95 18 173/104 H 100 07/18/17 07:47 97.8 F 94 17 96 07/18/17 03:58 97.8 F 94 17 169/92 H 97 Weight Weight 187 lb 3.2 oz I&O: 07/17/17 07/18/17 07/19/17 06:59 06:59 06:59 Intake Total 2932 3178 Output Total 1530 2575 Balance 1402 603 Result Diagrams: 07/18/17 04:15 07/18/17 04:15 Additional Labs: Accuchecks 07/18/17 07/18/17 07/17/17 10:25 05:38 20:29 POC Glucose 186 H 186 H 192 H 07/17/17 07/17/17 07/17/17 16:21 11:58 11:05 POC Glucose 175 H 153 H 149 H Radiology Reviewed by me: Yes EKG Reviewed by me: Yes Phys Exam - Physical Examination Constitutional: NAD HEENT: PERRLA, moist MMs, sclera anicteric, oral pharynx no lesions Neck: no nodes, no JVD, supple, full ROM Respiratory: no wheezing, no rales, no rhonchi, clear to auscultation bilateral Cardiovascular: RRR, no significant murmur, no rub Gastrointestinal: soft, non-tender, no distention, positive bowel sounds Musculoskeletal: pulses present, edema present Neurological: non-focal, normal sensation, moves all 4 limbs Lymphatic: no nodes Psychiatric: normal affect, A&O x 3 Skin: no rash, normal turgor, cap refill <2 seconds Dx/Plan (1) DKA (diabetic ketoacidoses) Code(s): E13.10 - OTH DIABETES MELLITUS WITH KETOACIDOSIS WITHOUT COMA Status : Resolved Qualifiers: Diabetes mellitus type: type 2 Diabetes mellitus complication detail: without coma Qualified Code(s): E11.10 - Type 2 diabetes mellitus with ketoacidosis without coma Comment: pt much more awake and alert. Gap closed, but not able to take po due to pancreatitis. CCM with D5NS, and insulin gtt. Belly imaging neg for signs of cirrhosis, pancreatitis seen, no other changes (2) Acute pancreatitis Code(s): K85.90 - ACUTE PANCREATITIS WITHOUT NECROSIS OR INFECTION, UNSP Status: Acute Qualifiers: Pancreatitis type: unspecified pancreatitis type Acute pancreatitis complication: unspecified Qualified Code(s): K85.90 - Acute pancreatitis without necrosis or infection, unspecified Comment: Seen on CT, Lipase 3600 to 1500 to 100 07/17. Eduar clears. EGD and colon otday. Ct neg for necrosis (3) ETOH abuse Code(s): F10.10 - ALCOHOL ABUSE, UNCOMPLICATED Status: Chronic (4) Alcohol withdrawal delirium Code(s): F10.231 - ALCOHOL DEPENDENCE WITH WITHDRAWAL DELIRIUM Status: Acute Comment: no drink in almost a week, ASE protocol initiated (5) SVT (supraventricular tachycardia) Code(s): I47.1 - SUPRAVENTRICULAR TACHYCARDIA Status: Resolved (6) Atrial fibrillation status post cardioversion Code(s): I48.91 - UNSPECIFIED ATRIAL FIBRILLATION Status: Resolved Comment: cardioverted in the field prior to EMS bringing to ER (7) Acute hypoxemic respiratory failure Code(s): J96.01 - ACUTE RESPIRATORY FAILURE WITH HYPOXIA Status: Resolved Comment: off O2, breathing good (8) Severe sepsis Code(s): A41.9 - SEPSIS, UNSPECIFIED ORGANISM; R65.20 - SEVERE SEPSIS WITHOUT SEPTIC SHOCK Status: Resolved Comment: Fever, tachycardia, elevated WBC, elevated lactic acid. (9) LGI bleed Code(s): K92.2 - GASTROINTESTINAL HEMORRHAGE, UNSPECIFIED Status: Acute Comment: episodic BRBPR. H/H down to 12.5. EGD and colonoscopy today (10) BJ (acute kidney injury) Code(s): N17.9 - ACUTE KIDNEY FAILURE, UNSPECIFIED Status: Acute Comment: Cr down to almost normal range, CCM with hydration - Plan cont current plan of care, continue antibiotics, PT/OT, out of bed/ambulate * .
[2017-07-18] MEDS ORDERED: Propofol 200 MG/20 ML VIAL ONE (14:06)
[2017-07-18] MEDS ORDERED: Lidocaine 1% PF 5 ML VIAL ONE (14:06)
[2017-07-18] MEDS ORDERED: Morphine Sulfate 2 MG/ML SYRINGE SLOW IVP PRN (14:41)
[2017-07-18] MEDS ORDERED: Promethazine HCl 25 MG/ML VIAL SLOW IVP PRN (14:41)
[2017-07-18] MEDS ORDERED: Ondansetron HCl/PF 4 MG/2 ML Vial IVP PRN (14:41)
[2017-07-18] MEDS ORDERED: Promethazine HCl 25 MG/ML VIAL IM PRN (14:41)
[2017-07-18] MEDS: Octreotide Acetate 1,250 MCG in Sodium Chloride 0.9% 250 ML 250 ML IVPB SCH (19:30)
[2017-07-18] MEDS: Hydrochlorothiazide 25 MG TAB PO SCH (20:34)
[2017-07-18] MEDS: Metoprolol Tartrate 25 MG TAB PO SCH (20:34)
[2017-07-18] MEDS: Losartan 25 MG TAB PO SCH (20:38)
--- NOTE | 2017-07-18 21:39 | OP ---
DATE OF PROCEDURE: 07/18/2017 PROCEDURE: Esophagogastroduodenoscopy with biopsy. INDICATION FOR PROCEDURE: Melena, hematochezia. DESCRIPTION OF PROCEDURE: After the risks and benefits of the procedure were explained to the patient including risks of bleeding, infection, perforation, reaction to anesthesia and/or pain, informed consent was obtained. The patient was then taken to the endoscopy suite where deep sedation was administered via propofol and anesthesia support. The standard gastroscope was then introduced into the mouth with intubation of the esophagus, stomach and first and second portion of the small intestine. The patient tolerated the procedure well with no periprocedural complications and the findings listed below. Duodenum: A 3-4 mm clean based cratered ulceration was seen in the duodenal bulb without any evidence of high risk stigmata or active/recent bleeding. There was also a mild amount of mucosal erythema seen in the duodenal bulb without associated ulcerations, erosions or mass lesions. Normal appearing mucosa was seen in the second portion of the duodenum with again no evidence of active/recent bleeding. Stomach: Multiple small ulcerations (1-3mm) were seen extending longitudinally along the greater curvature/gastric rugae with associated increased mucosal erythema. The ulcerations were clean based, cratered without any high risk stigmata of bleeding or evidence of active/recent bleeding. There were also scattered small ulcerations measuring approximately 1-2 mm in size in the gastric antrum and one ulcer measuring 4-5mm in the prepyloric region. Again, all the ulcerations were clean based, cratered, without any evidence of active/ recent bleeding or high risk stigmata. Multiple biopsies were then taken of these ulcerations for determination of histology. On retroflexion, a 4 mm polyp was seen in the gastric fundus with biopsy forceps employed for polypectomy. The polyp was removed completely and retrieved for pathology. No hiatal hernia was seen on retroflexion. Esophagus: Normal appearing mucosa was seen in the proximal and mid esophagus. Minimal scattered erosions were seen in the distal esophagus, no greater than 1-2 mm in size, extending proximally from the GE junction. There was no associated increased mucosal erythema, ulceration, active/recent bleeding, or mass lesions. Both the diaphragmatic pinch and GE junction were both well seen at approximately 42 cm past the incisors. IMPRESSION: 1. Multiple small, scattered, clean-based ulcerations seen in both the gastric body and antrum as well as duodenal bulb, concerning for Helicobacter pylori versus NSAID use. 2. A 4 mm gastric polyp seen in the proximal stomach (gastric fundus) status post polypectomy. 3. LA grade A reflux mediated erosive esophagitis. RECOMMENDATIONS: 1. Can transfer patient from PPI drip to PPI 40 mg b.i.d. 2. We will follow up on biopsy results with further treatment indicative per pathology. 3. Would continue to trend H&H and transfuse as necessary to maintain an H&H of 7/. 4. Proceed to colonoscopy. PROCEDURE: Colonoscopy. INDICATION: Melena, hematochezia. DESCRIPTION OF PROCEDURE: After explaining the risks and benefits of the procedure including risks of bleeding, infection, perforation, reactions to anesthesia and/or pain, informed consent was obtained. The patient was then taken to the endoscopy suite where deep sedation was administered via propofol and anesthesia support. The standard colonoscope was then introduced into the rectum with intubation of all segments of the colon and advanced to the cecum which was identified by the appendiceal orifice. The prep was considered good. The patient tolerated the procedure well with no periprocedural complications. The findings are listed below. FINDINGS: Rectum: Small external hemorrhoid noted. Normal sphincter tone, no masses palpated on RAJIV. Colon: Massive ulceration of the entire colon was noted, most especially within the rectosigmoid junction as well as the cecum. Within the cecum, the ulceration encompassed approximately 75% of the lumen with overlying fibrinous exudate and purplish hue appearance. The appendiceal orifice was identified as normal; however, the ileocecal valve displayed significant erythema, edema, and ulcerations overlying it that prevented intubation of the terminal ileum. Multiple biopsies were taken of the ulcerations in the cecum, ascending, transverse, descending colons. A linear ulceration (approximately 7-8mm in width) was seen extending from the cecum into the ascending, transverse, and descending colon along with scattered ulcerations surrounding this larger ulceration. The mucosa surrounding this linear ulceration appeared normal with normal vasculature and no granularity to the mucosa itself. Two other areas within the colon that showed increased purplish hue of the colonic mucosa were in the distal descending and distal sigmoid colon, again with significant ulceration with overlying fibrinous exudate. When biopsies were taken, no significant bleeding was noted. Within the rectum itself, there were multiple scattered ulcerations (nothing contiguous) measuring anywhere between 3-6 mm in size. Throughout the entire colon, no evidence of active/recent bleeding was noted with no active blood or clot noticed. Retroflexion was not performed in the rectum due to significant ulceration of the rectum and concern for perforation. IMPRESSION: 1. Significant ulceration of almost the entire colon, most especially within the cecum, distal descending and distal sigmoid colon consistent with ischemic colitis 2. External hemorrhoids. RECOMMENDATIONS: 1. Follow up with primary inpatient team. 2. Would continue to trend H&H and transfuse as necessary to maintain an H&H of 7/. 3. Would seek to maintain normotensive pressures in this patient as possible source of all ulcerations in the GI tract were due to hypotension on admission. 4. The patient can be started on a full liquid diet with monitoring of nutritional status. 5. Would continue IV fluid administration until the patient is able to tolerate an adequate amount per os. 6. Would avoid significant anticoagulation for the time being given significant ulceration seen in both the upper and lower GI tract. 7. Would obtain a CT angiography of the abdomen once the patient's renal function is more stable to evaluate for ischemia and/or embolic event to the GI tract. We will continue to follow. Please call with any questions. MARCOD
[2017-07-19 06:23] LABS: ALT (SGPT) 27 U/L (8-55); AST (SGOT) 21 U/L (5-34); Albumin 2.8 g/dL (3.4-4.8); Alkaline Phosphatase 79 U/L (40-150); Anion Gap 12 mmol/L (10-20); BUN (Urea Nitrogen) 20 mg/dL (9.8-20.1); Bilirubin, Total 2.2 mg/dL (0.2-1.2); Calc. Creatinine Clearance 47 mL/min (70-130); Calcium 8.3 mg/dL (7.8-10.44); Carbon Dioxide 25 mmol/L (23-31); Chloride 106 mmol/L (98-107); Estimated GFR-MDRD 33; Globulin 2.8 g/dL (2.4-3.5); Glucose 175 mg/dL (80-115); Lipase 447 U/L (8-78); Magnesium 1.5 mg/dL (1.6-2.6); Potassium 3.1 mmol/L (3.5-5.1); Protein, Total 5.6 g/dL (6.0-8.3); Sodium 140 mmol/L (136-145)
[2017-07-19] MEDS: Pantoprazole 80 MG in Sodium Chloride 0.9% 100 ML IVPB SCH (06:30)
[2017-07-19 06:41] LABS: Band 20 % (5-11); Eosinophils 1 % (0-10); Hemoglobin 12.1 g/dL (12.0-16.0); Lymphocytes 18 % (21-51); MDiff Complete? YES; Mean Corpuscular HGB CONC 33.1 g/dL (32.0-36.0); Mean Corpuscular Hemoglobin 32.9 pg (27.0-31.0); Mean Corpuscular Volume 99.2 fl (81.0-99.0); Mean Platelet Volume 9.1 fL (7.4-10.4); Metamyelocyte 2 % (0-0); Monocytes 14 % (0-10); Myelocyte 1 % (0-0); Neutrophil 44 % (42-75); PLT Morphology Comment Appears Adequate; Platelet Count 222 thou/uL (130-400); RBC Distribution Width 13.6 % (11.5-14.5); Red Blood Cell (RBC) Count 3.68 mill/uL (4.20-5.40); White Blood Cell (WBC) Count 9.4 thou/uL (4.8-10.8)
[2017-07-19] MEDS ORDERED: Magnesium Sulfate 3 GM in Sodium Chloride 0.9% 100 ML IVPB SCH ×2 (07:00→07:30)
[2017-07-19] MEDS: Metoprolol Tartrate 25 MG TAB PO SCH ×2 (08:20→20:06)
[2017-07-19] MEDS: Losartan 25 MG TAB PO SCH ×2 (08:20→20:06)
[2017-07-19] MEDS: Folic Acid 1 MG TAB PO SCH (08:20)
[2017-07-19] MEDS: Hydrochlorothiazide 25 MG TAB PO SCH ×2 (08:20→20:06)
[2017-07-19] MEDS: Multivitamin W/ Minerals 1 TAB PO SCH (08:21)
[2017-07-19] MEDS ORDERED: Dextrose 50% Abboject 50 ML SYRINGE SLOW IVP PRN (11:18)
[2017-07-19] MEDS ORDERED: Dextrose 5% in Water 1,000 ML IV PRN (11:18)
--- NOTE | 2017-07-19 11:53 | PDOC.PN ---
- Subjective Encounter Start Date: 07/19/17 Encounter Start Time: 08:15 No abd pain, no nausea, denies further bleeding. Case discussed with dr Hutson and reviewed his endoscopic findings - Objective Resuscitation Status: Resuscitation Status FULL:Full Resuscitation MAR Reviewed: Yes Vital Signs & Weight: Vital Signs (12 hours) Temp Pulse Pulse Pulse Resp BP BP 07/19/17 11:09 97.5 F L 60 20 07/19/17 10:04 109 H 127 H 152/74 H 183/95 H 07/19/17 07:24 97.6 F 79 20 07/19/17 07:16 97.6 F 79 20 07/19/17 06:38 07/19/17 03:57 97.8 F 70 16 07/19/17 03:00 07/19/17 00:42 98.6 F 77 18 BP Pulse Ox Pulse Ox Pulse Ox 07/19/17 11:09 160/84 H 94 L 07/19/17 10:04 94 L 92 L 07/19/17 07:24 94 L 07/19/17 07:16 176/91 H 95 07/19/17 06:38 95 07/19/17 03:57 170/89 H 95 07/19/17 03:00 95 07/19/17 00:42 151/83 H 96 Weight Weight 187 lb 3.2 oz I&O: 07/18/17 07/19/17 07/20/17 06:59 06:59 06:59 Intake Total 3178 1680 Output Total 2575 3175 Balance 603 -1495 Result Diagrams: 07/19/17 05:38 07/19/17 05:38 Additional Labs: Accuchecks 07/19/17 07/19/17 07/18/17 10:56 05:47 20:30 POC Glucose 278 H 159 H 217 H 07/18/17 16:48 POC Glucose 168 H Radiology Reviewed by me: Yes EKG Reviewed by me: Yes Phys Exam - Physical Examination Constitutional: NAD HEENT: PERRLA, moist MMs, sclera anicteric, oral pharynx no lesions Neck: no nodes, no JVD, supple, full ROM Respiratory: no wheezing, no rales, no rhonchi, clear to auscultation bilateral Cardiovascular: RRR, no significant murmur, no rub Gastrointestinal: soft, non-tender, no distention, positive bowel sounds Musculoskeletal: no edema, pulses present Neurological: non-focal, normal sensation, moves all 4 limbs Lymphatic: no nodes Psychiatric: normal affect, A&O x 3 Skin: no rash, normal turgor, cap refill <2 seconds Dx/Plan (1) DKA (diabetic ketoacidoses) Code(s): E13.10 - OTH DIABETES MELLITUS WITH KETOACIDOSIS WITHOUT COMA Status : Resolved Qualifiers: Diabetes mellitus type: type 2 Diabetes mellitus complication detail: without coma Qualified Code(s): E11.10 - Type 2 diabetes mellitus with ketoacidosis without coma Comment: pt much more awake and alert. Gap closed, but not able to take po due to pancreatitis. CCM with D5NS, and insulin gtt. Belly imaging neg for signs of cirrhosis, pancreatitis seen, no other changes (2) Acute pancreatitis Code(s): K85.90 - ACUTE PANCREATITIS WITHOUT NECROSIS OR INFECTION, UNSP Status: Acute Qualifiers: Pancreatitis type: unspecified pancreatitis type Acute pancreatitis complication: unspecified Qualified Code(s): K85.90 - Acute pancreatitis without necrosis or infection, unspecified Comment: Seen on CT, Lipase 3600 to 1500 to 100 07/17. [place] clears. EGD and colon reviewed. Ct neg for necrosis. Lipase back up to 400, but no symptoms (3) ETOH abuse Code(s): F10.10 - ALCOHOL ABUSE, UNCOMPLICATED Status: Chronic (4) Alcohol withdrawal delirium Code(s): F10.231 - ALCOHOL DEPENDENCE WITH WITHDRAWAL DELIRIUM Status: Acute Comment: no drink in almost a week, ASE protocol initiated on admit. looks better (5) SVT (supraventricular tachycardia) Code(s): I47.1 - SUPRAVENTRICULAR TACHYCARDIA Status: Resolved (6) Atrial fibrillation status post cardioversion Code(s): I48.91 - UNSPECIFIED ATRIAL FIBRILLATION Status: Resolved Comment: cardioverted in the field prior to EMS bringing to ER (7) Acute hypoxemic respiratory failure Code(s): J96.01 - ACUTE RESPIRATORY FAILURE WITH HYPOXIA Status: Resolved Comment: off O2, breathing good (8) Severe sepsis Code(s): A41.9 - SEPSIS, UNSPECIFIED ORGANISM; R65.20 - SEVERE SEPSIS WITHOUT SEPTIC SHOCK Status: Resolved Comment: Fever, tachycardia, elevated WBC, elevated lactic acid. (9) LGI bleed Code(s): K92.2 - GASTROINTESTINAL HEMORRHAGE, UNSPECIFIED Status: Acute Comment: episodic BRBPR. H/H down to 12.5. EGD and colonoscopy today (10) BJ (acute kidney injury) Code(s): N17.9 - ACUTE KIDNEY FAILURE, UNSPECIFIED Status: Acute Comment: Cr down to almost normal range, CCM with hydration - Plan * .
[2017-07-19] MEDS: HumaLOG 300 UNITS/3 ML VIAL SC PRN (12:20)
[2017-07-19] MEDS ORDERED: Potassium Chloride 20 MEQ TAB PO SCH (12:45)
--- NOTE | 2017-07-19 13:35 | PRG ---
DATE OF SERVICE: 07/19/2017 SERVICE: Pulmonary Medicine. INTERVAL HISTORY: The patient is doing fine from a respiratory standpoint. She is breathing comfort ably. She has no abdominal discomfort presently. She got an EGD and colonoscopy yesterday. This de monstrated diffuse peptic ulcer disease with multiple clean based ulcers. She also had diffuse colit is. Otherwise, there has been no interval change to her condition. She is tolerating p.o. and has n o complaints. PHYSICAL EXAMINATION: VITAL SIGNS: Afebrile, pulse 60, blood pressure 160/84, respirations 20, saturation 94% on room air. GENERAL: The patient is awake, alert, in no apparent distress. LUNGS: Excellent air entry with no prolonged expiratory phase, wheezing, rhonchi or crackles. HEART: Normal rate, regular. ABDOMEN: Soft, nontender, nondistended. Bowel sounds are positive. MUSCULOSKELETAL: No cyanosis or clubbing. There is trace pitting in the bilateral lower extremities . NEUROLOGIC: Grossly nonfocal. LABORATORY DATA: Hemoglobin 12.1. CBC is otherwise unremarkable. Creatinine down-trending to 1.55. Potassium 3.1. Basic metabolic profile is otherwise unremarkable. Total bilirubin has increased t o 2.2. Magnesium 1.5. Liver function studies are otherwise unremarkable. Blood cultures x2 and uri ne culture are negative. ASSESSMENT: 1. Acute hypoxic respiratory failure, resolved. 2. Acute pancreatitis, resolving. 3. Diabetic ketoacidosis. 4. Type 2 diabetes mellitus, new onset. 5. Acute blood loss anemia. 6. Alcohol abuse. PLAN: The patient is stable for transition out of the IMCU to the regular floor. Potassium and magn esium were once again be replaced. At this point, she has no further requirements for inpatient Pulm onary or Critical Care opinion. As such, I will sign off. Please call with additional questions or concerns.
--- NOTE | 2017-07-19 21:40 | PRG ---
DATE OF SERVICE: 07/19/2017 REASON FOR CONSULTATION: GI bleeding, ischemia. SUBJECTIVE: Overnight, the patient doing well this morning with no acute events or problems. She states that she continues to have abdominal pain, but has significantly improved since admission with only a dull ache present in the midepigastric region. Currently, she denies any nausea, vomiting, fevers, chills, shortness of breath, odynophagia, or dysphagia. No further episodes of GI bleeding. OBJECTIVE: VITAL SIGNS: Temperature of 97.9, pulse 75, blood pressure 174/89, respiratory rate 16, and satting 96% on room air. GENERAL: Patient is in no acute distress, lying comfortably in bed, alert and oriented x4. NECK: Supple, with no JVD noted. CARDIOVASCULAR: Regular rate and rhythm with no discernible murmurs, gallops, or rubs. RESPIRATORY: Clear to auscultation bilaterally with no discernible wheezes or rales. ABDOMEN: Normoactive bowel sounds, soft, nontender, it is nondistended. Mild tenderness to palpation in the midepigastric region. EXTREMITIES: No cyanosis, clubbing, or edema. LABORATORY DATA: CBC with a white blood cell count of 9.4, hemoglobin 12.1, hematocrit 36.5, platelets 222. Chemistry with a sodium 140, potassium 3.1, chloride 106, CO2 of 25, BUN 20, creatinine 1.55, platelets 175. IMAGING STUDIES: No current GI imaging studies are available for review. ASSESSMENT AND PLAN: The patient is a 67-year-old female with past medical history of atrial fibrillation with fibromyalgia and depression, presenting with diabetic ketoacidosis, urosepsis, pancreatitis, and ischemic colitis. Pancreatitis. The patient presented with an extensive alcohol use prior to admission drinking approximately 5-10 drinks per day and had been doing this for many years. At this point, her midepigastric abdominal pain has improved significantly during this admission with an initial diagnosis of pancreatitis due to her lipase being over 3000. Currently with improved general health status with return of her routine labs to baseline. Recommendations: 1. Can discontinue IV fluids and advance diet as tolerated. 2. Pain control per primary team. Ischemic colitis The patient presented with a recent history of minimal bright red blood per rectum noticed only on the toilet paper when wiping prior to admission. However , since admission, she was noted to have multiple bright red and darker colored bowel movements, concerning for both hematochezia and melena. She did have a slight drop in her H&H during this admission concerning for active gastrointestinal bleeding. She underwent both EGD and colonoscopy on 2017 with findings of scattered ulcerations within the gastric body and duodenal bulb. However, the colonoscopy was more revealing in that it showed diffuse ulcerations present throughout the entire colon. Most notably within the cecum, descending, and sigmoid colons. Given the purplish hue and the segmental nature of the worsening of ulceration, it was most consistent with ischemic colitis. At this time, the origin of her ischemic colitis is unclear, but may have been due to severe hypotension noted on admission as related to diabetic ketoacidosis and urosepsis with decreased blood flow to watershed areas of the colon, it could theoretically generate significant ulcerations through majority of the colon; however, with ulcerations noted also in the rectum, which is derived from further lower blood supply when compared to the superior and inferior mesenteric arteries. It is concerning for either embolic disease, atherosclerotic disease, or calcifications of the mesenteric vessels. At this time for further evaluation of this with CT angiography would be recommended. However, with her recently improved renal function, contrast induced nephropathy or acute renal failure from increased contrast load is likely so would refrain from contrasted studies at this time. RECOMMENDATIONS: 1. Follow up with primary inpatient team. 2. Continue to trend H&H and transfuse as necessary to maintain an H&H of 7/21. 3. We would seek to maintain normotensive pressures in this patient due to high probability ischemic colitis and low blood flow in watershed areas. 4. Advance diet as tolerated. 5. We would avoid significant anticoagulation for 48 hours being given significant ulceration of both the upper and lower gastrointestinal tract, then can progress if necessary 6. We would obtain a CT angiography of the abdomen once the patient's renal function is more stable to evaluate for etiology of ischemia of the GI tract. At this point, we will sign off. Please call with any questions. DWAYNE
[2017-07-20 06:42] LABS: Anion Gap 13 mmol/L (10-20); BUN (Urea Nitrogen) 14 mg/dL (9.8-20.1); Calc. Creatinine Clearance 57 mL/min (70-130); Calcium 8.5 mg/dL (7.8-10.44); Carbon Dioxide 26 mmol/L (23-31); Chloride 102 mmol/L (98-107); Estimated GFR-MDRD 42; Glucose 143 mg/dL (80-115); Lipase 517 U/L (8-78); Sodium 138 mmol/L (136-145)
[2017-07-20 06:55] LABS: Band 5 % (5-11); Eosinophils 4 % (0-10); Hemoglobin 13.2 g/dL (12.0-16.0); Lymphocytes 20 % (21-51); MDiff Complete? YES; Mean Corpuscular Hemoglobin 32.8 pg (27.0-31.0); Mean Corpuscular Volume 99.3 fl (81.0-99.0); Mean Platelet Volume 9.1 fL (7.4-10.4); Metamyelocyte 2 % (0-0); Monocytes 14 % (0-10); Myelocyte 1 % (0-0); Neutrophil 53 % (42-75); PLT Morphology Comment Appears Adequate; Platelet Count 286 thou/uL (130-400); RBC Distribution Width 13.7 % (11.5-14.5); RBC Morphology Normal; Reactive Lymphocytes 1 % (0-10); Red Blood Cell (RBC) Count 4.04 mill/uL (4.20-5.40); White Blood Cell (WBC) Count 8.8 thou/uL (4.8-10.8)
[2017-07-20] MEDS ORDERED: Magnesium Sulfate 3 GM in Sodium Chloride 0.9% 100 ML IVPB SCH (07:00)
[2017-07-20] MEDS: Hydrochlorothiazide 25 MG TAB PO SCH ×2 (10:10→20:05)
[2017-07-20] MEDS: Potassium Chloride 20 MEQ TAB PO SCH ×2 (10:10→12:03)
[2017-07-20] MEDS: Losartan 25 MG TAB PO SCH ×2 (10:10→20:05)
[2017-07-20] MEDS: Folic Acid 1 MG TAB PO SCH (10:10)
[2017-07-20] MEDS: Multivitamin W/ Minerals 1 TAB PO SCH (10:11)
[2017-07-20] MEDS: Metoprolol Tartrate 25 MG TAB PO SCH ×2 (10:11→20:05)
[2017-07-20] MEDS: HumaLOG 300 UNITS/3 ML VIAL SC PRN ×2 (12:03→17:19)
--- NOTE | 2017-07-20 14:22 | PDOC.PN ---
- Subjective Encounter Start Date: 07/20/17 Encounter Start Time: 02:10 No specific complaint. - Objective Resuscitation Status: Resuscitation Status FULL:Full Resuscitation MAR Reviewed: Yes Vital Signs & Weight: Vital Signs (12 hours) Temp Pulse Resp BP BP Pulse Ox 07/20/17 12:00 98.0 F 70 20 178/81 H 178/81 H 96 07/20/17 08:00 98.1 F 66 20 166/77 H 166/77 H 92 L 07/20/17 03:36 98.5 F 66 17 161/74 H 161/74 H 92 L Weight Weight 187 lb 3.2 oz I&O: 07/19/17 07/20/17 07/21/17 06:59 06:59 06:59 Intake Total 1680 540 360 Output Total 3175 1100 Balance -1495 -560 360 Result Diagrams: 07/20/17 04:41 07/20/17 04:41 Additional Labs: Accuchecks 07/20/17 07/20/17 07/19/17 10:49 05:35 20:44 POC Glucose 207 H 137 H 123 H 07/19/17 16:39 POC Glucose 70 Radiology Reviewed by me: Yes Phys Exam - Physical Examination HEENT: sclera anicteric Neck: no JVD Respiratory: clear to auscultation bilateral Cardiovascular: RRR Gastrointestinal: soft, positive bowel sounds Musculoskeletal: no edema Neurological: moves all 4 limbs Psychiatric: normal affect Dx/Plan (1) BJ (acute kidney injury) Code(s): N17.9 - ACUTE KIDNEY FAILURE, UNSPECIFIED Status: Acute Comment: Improving. F/u chemistry. (2) Acute pancreatitis Code(s): K85.90 - ACUTE PANCREATITIS WITHOUT NECROSIS OR INFECTION, UNSP Status: Acute Qualifiers: Pancreatitis type: unspecified pancreatitis type Acute pancreatitis complication: unspecified Qualified Code(s): K85.90 - Acute pancreatitis without necrosis or infection, unspecified Comment: Seen on CT, Lipase 3600 to 1500 to 100 07/17. [place] clears. EGD and colon reviewed. Ct neg for necrosis. Lipase back up to 400, but no symptoms (3) LGI bleed Code(s): K92.2 - GASTROINTESTINAL HEMORRHAGE, UNSPECIFIED Status: Acute Comment: s/p EGD, colonoscopy...has diffuse ulcerations in GI tract. For CT angio when kidney function ok. (4) ETOH abuse Code(s): F10.10 - ALCOHOL ABUSE, UNCOMPLICATED Status: Chronic (5) Atrial fibrillation status post cardioversion Code(s): I48.91 - UNSPECIFIED ATRIAL FIBRILLATION Status: Resolved Comment: cardioverted in the field prior to EMS bringing to ER (6) DKA (diabetic ketoacidoses) Code(s): E13.10 - OTH DIABETES MELLITUS WITH KETOACIDOSIS WITHOUT COMA Status : Resolved Qualifiers: Diabetes mellitus type: type 2 Diabetes mellitus complication detail: without coma Qualified Code(s): E11.10 - Type 2 diabetes mellitus with ketoacidosis without coma Comment: resolved. (7) Hypokalemia Code(s): E87.6 - HYPOKALEMIA Status: Acute Comment: supplemented. f/u chemistry. - Plan * .
[2017-07-21 05:46] LABS: Band 8 % (5-11); Hemoglobin 12.8 g/dL (12.0-16.0); Lymphocytes 17 % (21-51); MDiff Complete? YES; Mean Corpuscular HGB CONC 32.6 g/dL (32.0-36.0); Mean Corpuscular Hemoglobin 32.5 pg (27.0-31.0); Mean Corpuscular Volume 99.9 fl (81.0-99.0); Mean Platelet Volume 8.6 fL (7.4-10.4); Monocytes 21 % (0-10); Neutrophil 54 % (42-75); PLT Morphology Comment Appears Adequate; Platelet Count 286 thou/uL (130-400); RBC Distribution Width 13.7 % (11.5-14.5); RBC Morphology Normal; Red Blood Cell (RBC) Count 3.93 mill/uL (4.20-5.40); White Blood Cell (WBC) Count 8.3 thou/uL (4.8-10.8)
[2017-07-21 05:49] LABS: Anion Gap 14 mmol/L (10-20); BUN (Urea Nitrogen) 11 mg/dL (9.8-20.1); Calc. Creatinine Clearance 61 mL/min (70-130); Calcium 8.1 mg/dL (7.8-10.44); Carbon Dioxide 26 mmol/L (23-31); Chloride 102 mmol/L (98-107); Estimated GFR-MDRD 50; Glucose 144 mg/dL (80-115); Magnesium 1.5 mg/dL (1.6-2.6); Potassium 3.2 mmol/L (3.5-5.1); Sodium 139 mmol/L (136-145)
[2017-07-21] MEDS: Potassium Chloride 20 MEQ TAB PO SCH (08:51)
[2017-07-21] MEDS: Multivitamin W/ Minerals 1 TAB PO SCH (08:51)
[2017-07-21] MEDS: Losartan 25 MG TAB PO SCH ×2 (08:51→19:45)
[2017-07-21] MEDS: Hydrochlorothiazide 25 MG TAB PO SCH ×2 (08:51→19:44)
[2017-07-21] MEDS: Folic Acid 1 MG TAB PO SCH (08:52)
[2017-07-21] MEDS: Metoprolol Tartrate 25 MG TAB PO SCH ×2 (08:52→19:44)
--- NOTE | 2017-07-21 10:28 | PDOC.PN ---
- Subjective Encounter Start Date: 07/21/17 Encounter Start Time: 10:00 No specific complaint. - Objective Resuscitation Status: Resuscitation Status FULL:Full Resuscitation MAR Reviewed: Yes Vital Signs & Weight: Vital Signs (12 hours) Temp Pulse Resp BP BP Pulse Ox 07/21/17 07:30 98.2 F 72 16 136/63 95 07/21/17 04:00 151/82 H 07/21/17 03:13 97.8 F 70 14 151/82 H 98 07/20/17 23:40 98.9 F 68 18 139/80 88 L Weight Weight 171 lb 1.6 oz I&O: 07/20/17 07/21/17 07/22/17 06:59 06:59 06:59 Intake Total 540 1570 Output Total 1100 650 Balance -560 920 Result Diagrams: 07/21/17 04:53 07/21/17 04:53 Additional Labs: Accuchecks 07/21/17 07/20/17 07/20/17 05:24 22:02 16:47 POC Glucose 136 H 124 H 204 H 07/20/17 10:49 POC Glucose 207 H Phys Exam - Physical Examination HEENT: sclera anicteric Neck: no JVD Respiratory: clear to auscultation bilateral Cardiovascular: RRR Gastrointestinal: soft, positive bowel sounds Neurological: moves all 4 limbs Psychiatric: normal affect, A&O x 3 Dx/Plan (1) BJ (acute kidney injury) Code(s): N17.9 - ACUTE KIDNEY FAILURE, UNSPECIFIED Status: Resolved Comment : We'll hydrate for CT agio suggested by GI. (2) Acute pancreatitis Code(s): K85.90 - ACUTE PANCREATITIS WITHOUT NECROSIS OR INFECTION, UNSP Status: Resolved Qualifiers: Pancreatitis type: unspecified pancreatitis type Acute pancreatitis complication: unspecified Qualified Code(s): K85.90 - Acute pancreatitis without necrosis or infection, unspecified Comment: Seen on CT, Lipase 3600 to 1500 to 100 07/17. [place] clears. EGD and colon reviewed. Ct neg for necrosis. Lipase back up to 400, but no symptoms (3) LGI bleed Code(s): K92.2 - GASTROINTESTINAL HEMORRHAGE, UNSPECIFIED Status: Acute Comment: s/p EGD, colonoscopy...has diffuse ulcerations in GI tract. For CT angio when kidney function ok. (4) ETOH abuse Code(s): F10.10 - ALCOHOL ABUSE, UNCOMPLICATED Status: Chronic (5) Atrial fibrillation status post cardioversion Code(s): I48.91 - UNSPECIFIED ATRIAL FIBRILLATION Status: Resolved Comment: cardioverted in the field prior to EMS bringing to ER (6) DKA (diabetic ketoacidoses) Code(s): E13.10 - OTH DIABETES MELLITUS WITH KETOACIDOSIS WITHOUT COMA Status : Resolved Qualifiers: Diabetes mellitus type: type 2 Diabetes mellitus complication detail: without coma Qualified Code(s): E11.10 - Type 2 diabetes mellitus with ketoacidosis without coma Comment: resolved. (7) Hypokalemia Code(s): E87.6 - HYPOKALEMIA Status: Acute Comment: supplemented. f/u chemistry. - Plan -: Continue current therapy. -: f/u ct angio * .
[2017-07-21] MEDS ORDERED: Potassium Chloride 20 MEQ/100 ML PREMIX BAG IVPB SCH (10:30)
[2017-07-21] MEDS ORDERED: Potassium Chloride 20 MEQ in Sodium Chloride 0.9% 250 ML 250 ML IVPB SCH (10:45)
[2017-07-21] MEDS: Sodium Chloride 0.9% 1,000 ML IV SCH (11:20)
[2017-07-21] MEDS: HumaLOG 300 UNITS/3 ML VIAL SC PRN (11:35)
[2017-07-21] MEDS ORDERED: ISOVUE-370 76%-LOCM 1 ML ONE (12:25)
--- NOTE | 2017-07-21 14:38 | CT ---
CT ANGIOGRAM OF THE ABDOMEN AND PELVIS INCLUDING 3D RENDERING: Date: 07/21/17 HISTORY: 67-year-old female with rectal bleeding and lower abdominal pain, with concern for possible ischemic bowel with bleeding. FINDINGS: There is a moderate size pericardial effusion. Small right pleural effusion and some pleural based pa renchymal changes in both lung bases, worse on the right side, possibly some mild right lower lobe pn eumonitis or minimal subsegmental atelectasis. These changes are slightly improved from the 07/15/17 noncontrast study. The liver, gallbladder, pancreas, spleen, and adrenal glands are unremarkable. No evidence for renal calculus or acute obstruction. No CT evidence for acute appendicitis. There is no evidence for aortic aneurysm or dissection. There are some calcified plaques within the aorta and at the origins of the celiac artery and the left renal artery. There are no significant stenotic schwartz ges involving the celiac artery, superior mesenteric artery, or inferior mesenteric artery. There zamora s appear to be some nonspecific wall thickening involving the colon, including the splenic flexure, a lthough there is no oral contrast and the colon is not distended, which may account for this wall thi ckening appearance. Minimal free intraperitoneal fluid. IMPRESSION: No evidence for significant stenotic changes involving the celiac, superior mesenteric artery, and in ferior mesenteric artery, or right and left renal arteries. Moderate size pericardial effusion. Minim al bibasilar pleural and parenchymal changes, slight worsening in the right base, but showing improve ment from the prior 07/15/17 study. Some nonspecific potential wall thickening in the left colon and splenic flexure and distal transverse colon regions, although the colon is not distended and has no o ral contrast which could potentially account for this. No evidence for abscess. No CT evidence for ac aron appendicitis. Minimal free fluid in the pelvis. Given concern for rectal bleeding, consideration of follow-up nuclear medicine GI bleed scan might be of benefit. POS: GAURAV
[2017-07-22] MEDS: Sodium Chloride 0.9% 1,000 ML IV SCH ×2 (00:53→12:24)
[2017-07-22 05:40] LABS: Anion Gap 12 mmol/L (10-20); BUN (Urea Nitrogen) 10 mg/dL (9.8-20.1); Calc. Creatinine Clearance 68 mL/min (70-130); Calcium 7.8 mg/dL (7.8-10.44); Carbon Dioxide 25 mmol/L (23-31); Chloride 105 mmol/L (98-107); Estimated GFR-MDRD 56; Glucose 143 mg/dL (80-115); Sodium 139 mmol/L (136-145)
[2017-07-22] MEDS: Potassium Chloride 20 MEQ TAB PO SCH ×3 (08:19→11:35)
[2017-07-22] MEDS: Hydrochlorothiazide 25 MG TAB PO SCH (08:19)
[2017-07-22] MEDS: Folic Acid 1 MG TAB PO SCH (08:19)
[2017-07-22] MEDS: Multivitamin W/ Minerals 1 TAB PO SCH (08:19)
[2017-07-22] MEDS: Losartan 25 MG TAB PO SCH (08:19)
[2017-07-22] MEDS: Metoprolol Tartrate 25 MG TAB PO SCH (08:19)
[2017-07-22 08:25] VITALS: TEMP 97.7
--- NOTE | 2017-07-22 09:31 | PDOC.PN ---
- Subjective Encounter Start Date: 07/22/17 Encounter Start Time: 09:00 No complaint. - Objective Resuscitation Status: Resuscitation Status FULL:Full Resuscitation MAR Reviewed: Yes Vital Signs & Weight: Vital Signs (12 hours) Temp Pulse Resp BP BP Pulse Ox 07/22/17 08:24 97.7 F 74 14 137/74 97 07/22/17 07:52 98.0 F 66 16 07/22/17 04:00 142/74 H 07/22/17 03:25 98.0 F 66 16 142/74 H 98 07/22/17 00:51 98.2 F 72 18 139/86 07/22/17 00:00 139/86 Weight Weight 172 lb 1.6 oz I&O: 07/21/17 07/22/17 07/23/17 06:59 06:59 06:59 Intake Total 1570 2861 Output Total 650 Balance 920 2861 Result Diagrams: 07/21/17 04:53 07/22/17 05:09 Additional Labs: Accuchecks 07/21/17 07/21/17 07/21/17 21:01 17:01 10:43 POC Glucose 193 H 184 H 242 H Phys Exam - Physical Examination Constitutional: NAD HEENT: sclera anicteric Neck: no JVD Respiratory: no rales Cardiovascular: RRR Gastrointestinal: soft Musculoskeletal: no edema Neurological: moves all 4 limbs Psychiatric: normal affect, A&O x 3 Dx/Plan (1) BJ (acute kidney injury) Code(s): N17.9 - ACUTE KIDNEY FAILURE, UNSPECIFIED Status: Resolved Comment : BJ resolved. K is low, supplemented. (2) Acute pancreatitis Code(s): K85.90 - ACUTE PANCREATITIS WITHOUT NECROSIS OR INFECTION, UNSP Status: Resolved Qualifiers: Pancreatitis type: unspecified pancreatitis type Acute pancreatitis complication: unspecified Qualified Code(s): K85.90 - Acute pancreatitis without necrosis or infection, unspecified Comment: Seen on CT, Lipase 3600 to 1500 to 100 07/17. [place] clears. EGD and colon reviewed. Ct neg for necrosis. Lipase back up to 400, but no symptoms (3) LGI bleed Code(s): K92.2 - GASTROINTESTINAL HEMORRHAGE, UNSPECIFIED Status: Acute Comment: s/p EGD, colonoscopy...has diffuse ulcerations in GI tract. CT angio reviewd.. to follow up with gu as outpatient. (4) ETOH abuse Code(s): F10.10 - ALCOHOL ABUSE, UNCOMPLICATED Status: Chronic (5) Atrial fibrillation status post cardioversion Code(s): I48.91 - UNSPECIFIED ATRIAL FIBRILLATION Status: Resolved Plan: PCP tO restart anticoagulation Comment: cardioverted in the field prior to EMS bringing to ER (6) DKA (diabetic ketoacidoses) Code(s): E13.10 - OTH DIABETES MELLITUS WITH KETOACIDOSIS WITHOUT COMA Status : Resolved Qualifiers: Diabetes mellitus type: type 2 Diabetes mellitus complication detail: without coma Qualified Code(s): E11.10 - Type 2 diabetes mellitus with ketoacidosis without coma Comment: resolved. (7) Hypokalemia Code(s): E87.6 - HYPOKALEMIA Status: Acute Comment: supplemented. f/u chemistry. - Plan * .
--- NOTE | 2017-07-22 10:42 | DIS ---
DATE OF ADMISSION: 07/14/2017 DATE OF DISCHARGE: 07/22/2017 ADMITTING DIAGNOSES: Diabetic ketoacidosis with severe metabolic acidosis, possible alcohol withdraw al, atrial fibrillation, metabolic encephalopathy, acute kidney injury, also found to have GI bleedin g with diffuse ulcer of the GI tract, acute pancreatitis. ASSOCIATE PRODUCT INTEGRITY ENGINEER: Dr. Hutson and Dr. Diaz. PROCEDURE: Abdomen ultrasound, upper and lower GI endoscopy, abdomen and pelvis CT. COURSE OF HOSPITALIZATION: Uncomplicated, responded well to management. The patient is clinically s table at this time being discharged home. DISCHARGE MEDICATIONS: Please see discharge medication reconciliation sheet. The patient is to follow up with her primary care physician and also with Dr. Adán Pagan. For today's physical examination, please refer to patient's medical record progress note section. OTHER PROCEDURE: Chest x-ray and brain CT. Discharge time 32 minutes.
[2017-07-22 12:07] VITALS: BP 156/80
[2017-07-22 14:21] LABS: Potassium 3.6 mmol/L (3.5-5.1)
[2017-07-22] MEDS ORDERED: Zolpidem Tartrate 5 MG TAB PO SCH (21:00)
[2017-07-22] MEDS ORDERED: Hydrochlorothiazide 25 MG TAB PO SCH (21:00)
[2017-07-22] MEDS ORDERED: tiZANidine HCl 4 MG TAB PO PRN (21:00)
[2017-07-22] MEDS ORDERED: Losartan 25 MG TAB PO SCH (21:00)
[2017-07-22] MEDS ORDERED: Non-Formulary Item 1 EACH (Losartan/Hydrochlorothiazide [Losartan-Hctz 100-12.5 Mg Tab] 1 PO SCH (21:00)
[2017-07-22] MEDS ORDERED: busPIRone HCl 10 MG TAB PO SCH (21:00)
[2017-07-22] MEDS ORDERED: Metoprolol Tartrate 50 MG TAB PO SCH (21:00)
[2017-07-22] MEDS ORDERED: traZODone HCl 50 MG TAB PO SCH (21:00)
[2017-07-22] MEDS ORDERED: Pregabalin 50 MG CAP PO SCH (21:00)
[2017-07-23] MEDS ORDERED: DULoxetine 60 MG CAP PO SCH (09:00)
--- NOTE | 2017-07-25 10:50 | PQF ---
DATE: 07-25-17 ATTN: DR. DIANE MIMS Please exercise your independent, professional judgment in responding to the clarification form. Clinical indicators are provided on the bottom of this form for your review Please check appropriate box(s): [ x ] Sepsis wtih UTI [ ] Sepsis without UTI [ ] UTI [ ] Contaminated urine specimen without UTI [ ] Other diagnosis [ ] Unable to determine In addition, please specify: Present on Admission (POA): [ x ] Yes [ ] No [ ] Unable to determine For continuity of documentation, please document condition throughout progress notes and discharge summary. Thank You. CLINICAL INDICATORS - SIGNS / SYMPTOMS / LABS ER DIAGNOSIS: DKA, HYPOTHERMIA, NEW ONSET A FIB S/P CARDIOVERSION, PANCREATITIS, SEPSIS, SYNCOPE CONSULT NOTE DR. JUVENAL CORTEZ 07-16-17: WE WOULD CONTINUE ANTIBIOTICS FOR URINARY TRACT INFECTION AND PROBABLE UROSEPSIS. URINE 18: URINE PROTEIN: 100 H URINE GLUCOSE: >1000 H URINE BLOOD: LARGE H URINE KETONES: TRACE H UR LEUKOCYTE ESTERASE: SMALL H URINE WBC: GREATER THAN 50-TNTC H URINE BACTERIA: 4+ H RISK FACTORS: CONSULT NOTE DR. JUVENAL CORTEZ 07-16-17: WE WOULD CONTINUE ANTIBIOTICS FOR URINARY TRACT INFECTION AND PROBABLE UROSEPSIS. ER DOCUMENTATION: SCHMITZ CATHETER WITH URINOMETER INSERTED USING A 16FR CATHTER, UNABLE TO COLLECT FOR SAMPLE WITH INITIAL INSERTION TREATMENT: LEVAQUIN, ZOSYN, IVF (This form is maintained as a part of the permanent medical record) 2014 [employer] All Rights Reserved [email or web address] Office: [phone] [facility]OUR[facility] MEMORIAL HOSPITALKaterin
== END 2017-07-22 14:53 | disposition home or self-care (01) | DRG 871 ==
LOC: ERS 14:22 → ERHOLD 17:41 → IMCU/EMU 07-15 00:37 → 2SE 07-19 15:14
PROVIDERS: ADMIT Internal Medicine Infectious Disease; ATTEND Internal Medicine Infectious Disease
PROC: 02HV33Z Insertion of Infusion Device into Superior Vena Cava, Percutaneous Approach (ICD-10-PCS; principal; 2017-07-18)
PROC: 0DB68ZZ Excision of Stomach, Via Natural or Artificial Opening Endoscopic (ICD-10-PCS; 2017-07-18)
PROC: 0DBK8ZX Excision of Ascending Colon, Via Natural or Artificial Opening Endoscopic, Diagnostic (ICD-10-PCS; 2017-07-18)
PROC: 0DBL8ZX Excision of Transverse Colon, Via Natural or Artificial Opening Endoscopic, Diagnostic (ICD-10-PCS; 2017-07-18)
PROC: 0DBM8ZX Excision of Descending Colon, Via Natural or Artificial Opening Endoscopic, Diagnostic (ICD-10-PCS; 2017-07-18)
PROC: 0DBH8ZX Excision of Cecum, Via Natural or Artificial Opening Endoscopic, Diagnostic (ICD-10-PCS; 2017-07-18)
PROC: 0DB78ZX Excision of Stomach, Pylorus, Via Natural or Artificial Opening Endoscopic, Diagnostic (ICD-10-PCS; 2017-07-18)
DX: A41.9 Sepsis, unspecified organism (principal); E11.10 Type 2 diabetes mellitus with ketoacidosis without coma; J96.01 Acute respiratory failure with hypoxia; G93.41 Metabolic encephalopathy; F10.231 Alcohol dependence with withdrawal delirium; N17.9 Acute kidney failure, unspecified; K55.9 Vascular disorder of intestine, unspecified; K85.90 Acute pancreatitis without necrosis or infection, unspecified; K92.1 Melena; K63.3 Ulcer of intestine; K22.10 Ulcer of esophagus without bleeding; D62 Acute posthemorrhagic anemia; N39.0 Urinary tract infection, site not specified; I47.1 Supraventricular tachycardia; R65.20 Severe sepsis without septic shock; K26.9 Duodenal ulcer, unspecified as acute or chronic, without hemorrhage or perforation; K31.7 Polyp of stomach and duodenum; K64.4 Residual hemorrhoidal skin tags; M79.7 Fibromyalgia; F32.9 Major depressive disorder, single episode, unspecified; I48.91 Unspecified atrial fibrillation; E87.6 Hypokalemia; K25.9 Gastric ulcer, unspecified as acute or chronic, without hemorrhage or perforation
CPT/HCPCS: 36415; 36416; 36556; 51702; 70450; 71045; 74174; 74176; 76705; 80048; 80053; 80061; 81003; 81015; 82010; 82274; 82330; 82550; 82553; 82803; 83605; 83690; 83735; 83880; 84484; 85014; 85018; 85025; 85379; 85610; 85730; 87086; 88305; 88312; 93005; 96361; 96365; 96366; 96367; 96368; 96372; 96375; 96376; 99292; C9113; G8978-GP-CM; G8979-GP-CJ; G8987-GO-CJ; G8988-GO-CH; J0131; J0360; J1650; J1815; J1956; J2001; J2270; J2354; J2405; J2543; J2550; J2704; J3475; J3480; J7050

== ENCOUNTER 2019-11-16 10:50 | Inpatient (IN) | payer MEDICARE ==
--- NOTE | 2019-11-16 11:13 | CT ---
HEAD CT WITHOUT CONTRAST: HISTORY: Level II stroke alert. Dizziness. Patient is not feeling well. Multiple episodes of falling. COMPARISON: 07/14/2017. FINDINGS: Hemorrhage: No intraparenchymal hemorrhage or extra-axial hematoma. Brain parenchyma: Cortical barrientos-white matter differentiation is preserved. No mass effect or midline shift. Basilar cisterns are patent.Stable white matter hypodensities due to chronic small vessel ischemic change. Ventricular system: Ventricles and sulci are patent and symmetric. Calvarium: Intact. Sinuses and mastoid air cells: Adequate aeration. IMPRESSION: 1. No acute intracranial process. 2. Results of the study discussed with Dr. Augustin 11/16/2019 at 11:12 AM Code CR Transcribed Date/Time: 11/16/2019 11:16 AM
[2019-11-16 11:17] LABS: #Eosinphils 0.1 thou/uL (0.0-0.7); #Lymphocytes 1.5 thou/uL (1.20-3.40); #Monocytes 0.6 thou/uL (0.11-0.59); #Neutrophils 5.2 thou/uL (1.40-6.50); %Basophils 0.5 % (0.0-1.0); %Eosinophils 0.7 % (0.0-10.0); %Lymphocytes 19.6 % (21.0-51.0); %Monocytes 8.7 % (0.0-10.0); %Neutrophils 70.6 % (42.0-75.0); Hemoglobin 14.9 g/dL (12.0-16.0); Mean Corpuscular HGB CONC 33.8 g/dL (32.0-36.0); Mean Corpuscular Hemoglobin 32.7 pg (27.0-31.0); Mean Corpuscular Volume 96.8 fL (78.0-98.0); Mean Platelet Volume 8.4 fL (7.4-10.4); Platelet Count 232 thou/uL (130-400); Red Blood Cell (RBC) Count 4.56 mill/uL (4.20-5.40); White Blood Cell (WBC) Count 7.4 thou/uL (4.8-10.8)
--- NOTE | 2019-11-16 11:17 | CT ---
CT CERVICAL SPINE WITHOUT CONTRAST: HISTORY: Multiple falls. Pain. COMPARISON: 06/15/2014. FINDINGS: Diffuse bone demineralization. Laminectomy defect at C4-C5, C5-C6. No craniocervical dissociation. Ap propriate alignment of the lateral masses of C1 and C2. Extensive posterior fusion hardware with bilateral facet screws at C3, C5, C6 and T1. No perihardware lucency. Soft tissue neck structures: No mass, lymphadenopathy or hematoma. No prevertebral soft tissue swelli ng. Upper mediastinum and lung apices: No acute abnormality. Central spinal canal: Varying degrees of central canal stenosis and foraminal narrowing on the basis of degenerative change. Technique and beam attenuation artifact limits evaluation. Vertebral bodies: Cervical spine vertebral body height is maintained. No fracture. IMPRESSION: 1. Postsurgical changes as described above. 2. Diffuse bone mineralization. 3. No cervical spine fracture. Results of study discussed with Dr. Augustin 11/16/2019 at 11:16 AM Code CR Transcribed Date/Time: 11/16/2019 11:22 AM
[2019-11-16] MEDS ORDERED: Naloxone HCl 2 mg/2 ml Syringe ONE (11:21)
[2019-11-16 11:37] LABS: Acetaminophen Less than 6.0 mcg/mL (10.0-30.0); Alcohol 84 mg/dL (Less than 10); CK (CPK) 306 U/L (29-168); Salicylate Less than 8.0 mg/dL (15.0-30.0)
[2019-11-16 11:38] LABS: ALT (SGPT) 92 U/L (8-55); AST (SGOT) 154 U/L (5-34); Alkaline Phosphatase 131 U/L (40-110); Anion Gap 21 mmol/L (10-20); BUN (Urea Nitrogen) 23 mg/dL (9.8-20.1); Bilirubin, Total 1.6 mg/dL (0.2-1.2); Calc. Creatinine Clearance 0 mL/min (70-130); Calcium 8.6 mg/dL (7.8-10.44); Carbon Dioxide 21 mmol/L (23-31); Chloride 86 mmol/L (98-107); Estimated GFR-MDRD 36; Globulin 2.7 g/dL (2.4-3.5); Glucose 178 mg/dL (80-115); Lipase 60 U/L (8-78); Protein, Total 6.7 g/dL (6.0-8.3); Sodium 125 mmol/L (136-145)
--- NOTE | 2019-11-16 11:40 | RAD ---
Exam: Chest one view HISTORY:Altered mental status. Comparison: 07/14/2017 FINDINGS: Cardiac silhouette: Normal Aorta: Unremarkable Pulmonary vessels: Normal Costophrenic angles: Clear LUNGS: No masses or consolidation. Pneumothorax: None Osseous abnormalities: None IMPRESSION: No acute cardiopulmonary process.
--- NOTE | 2019-11-16 11:40 | RAD ---
Exam:Right hip 2 view HISTORY: Trauma. Pain. Fall. COMPARISON: None FINDINGS: Contour of the femoral head is maintained. Preserved hip joint space. No fracture. IMPRESSION: No fracture.
[2019-11-16 11:41] LABS: Potassium 2.5 mmol/L (3.5-5.1)
--- NOTE | 2019-11-16 11:42 | RAD ---
Exam: One view pelvis HISTORY: Trauma. Pain. FINDINGS: Visualized sacral ala and bony pelvis are intact. Contour of both femoral heads are maintai kirit. Symmetric hip joint spaces Obturator rings are intact IMPRESSION: No fracture
[2019-11-16 11:51] LABS: Bilirubin Negative (Negative); Blood, Urine Negative (Negative); Clarity Clear (Clear); Glucose, Urine (Dipstick) Normal (Negative); Leukocyte Negative Leu/uL (Negative); Nitrite Negative (Negative); Protein, Urine (Dipstick) Negative (Neg-Trace); Urobilinogen Normal mg/dL (Less than 2)
[2019-11-16 11:59] LABS: CKMB 6.1 ng/mL (0-6.6)
[2019-11-16] MEDS ORDERED: D5 1/2 NS w/20 mEq KCL 1,000 ML IV SCH (12:00)
[2019-11-16] MEDS ORDERED: Naloxone HCl 2 mg/2 ml Syringe IV SCH (12:00)
[2019-11-16 12:23] LABS: Amphetamine Not Detected (NotDetected); Barbiturates Screen Not Detected (NotDetected); Benzodiazepine Screen Not Detected (NotDetected); Cocaine Metabolite Screen Not Detected (NotDetected); Medtox Control Line Valid? VALID (VALID); Medtox Reader # READER 1; Methadone Not Detected (NotDetected); Methamphetamine Not Detected (NotDetected); Opiate Screen Not Detected (NotDetected); Oxycodone Screen Not Detected (NotDetected); Phencyclidine (PCP) Not Detected (NotDetected); THC/Cannabinoid Screen Not Detected (NotDetected); Tricyclic Screen Not Detected (NotDetected)
[2019-11-16] MEDS ORDERED: NS 0.9% w/ 20 MEQ KCL 1,000 ML IV SCH (13:45)
[2019-11-16 14:47] LABS: Troponin I 0.022 ng/mL (< 0.028)
[2019-11-16] MEDS ORDERED: Ondansetron PF 4 MG/2 ML Vial IVP PRN ×2 (15:08→15:52)
[2019-11-16] MEDS ORDERED: Ondansetron ODT 4 MG TAB SL PRN (15:08)
[2019-11-16] MEDS ORDERED: Lorazepam 2 MG/ML VIAL SLOW IVP PRN (15:52)
[2019-11-16] MEDS ORDERED: Ondansetron ODT 4 MG TAB PO PRN (15:52)
[2019-11-16] MEDS ORDERED: HYDROcodone/Acetaminophen 5/325 mg Tablet PO PRN (15:52)
[2019-11-16 16:12] VITALS: BMI 28.2
[2019-11-16] MEDS ORDERED: tiZANidine HCl 4 MG TAB PO PRN (16:53)
[2019-11-16 17:13] LABS: Anion Gap 19 mmol/L (10-20); BUN (Urea Nitrogen) 23 mg/dL (9.8-20.1); Calc. Creatinine Clearance 57 mL/min (70-130); Calcium 8.1 mg/dL (7.8-10.44); Carbon Dioxide 18 mmol/L (23-31); Chloride 91 mmol/L (98-107); Estimated GFR-MDRD 45; Glucose 202 mg/dL (80-115); Potassium 3.3 mmol/L (3.5-5.1); Sodium 125 mmol/L (136-145)
[2019-11-16 17:17] LABS: Troponin I 0.026 ng/mL (< 0.028)
[2019-11-16] MEDS ORDERED: Potassium Chloride 20 MEQ TAB PO STA (17:26)
[2019-11-16] MEDS ORDERED: Dextrose 50% Abboject 50 ML SYRINGE SLOW IVP PRN (17:29)
[2019-11-16] MEDS ORDERED: Dextrose 5% in Water 1,000 ML IV PRN (17:29)
[2019-11-16] MEDS ORDERED: HumaLOG 300 UNITS/3 ML VIAL SC PRN (17:29)
[2019-11-16] MEDS ORDERED: D5 0.9% NS w/ 20 mEq KCl 1,000 ML IV SCH (17:30)
--- NOTE | 2019-11-16 17:35 | PDOC.HHP ---
Hospitalist HPI - History of Present Illness recurrent falls History of Present Illness: 69yo F w/ MHx of atrial fibrillation, fibromyalgia, polysubstance including alcohol abuse, reactive gastropathy, cervical spondylosis s/p hardware placement , presents after a fall. The patient reports multiple such falls in the past, at least few months, associated with lightheadedness and incoordination. She lives with daughter and has been drinking 5-6 beers daily. Earlier, she walking at home for a few seconds, then she felt dizzy and fell, trigerring a life alarm. EMS reportedly found her down but conscious, while she was trying to walk reportedly fell twice again in presence of EMS. Was brought to the ED for suspected stroke on encounter, laying comfortably in bed and complains of recurrent falls that are associated with alcohol intake. Also endorses weight loss, dizziness. Denies headache, change in vision, diplopia, hearing loss, chest pain, palpitations, dyspnea, dysuria, burning on urination, hematuria, hematemesis, hematochezia, melena, focal weakness, history of seizures of alcohol withdrawals. ED Course: In the ED, was found to have questionable facial droop; ct brain showed no acute process, cxr clear; alcohol positive, anion gap acidosis; trop intdeterminate; EKG sinus jamarcus in 50s. She was supplemented with fluids and electrolytes and was admitted to the floor Hospitalist ROS - Review of Systems Constitutional: denies: fever, chills, sweats, weakness Eyes: denies: vision change ENT: denies: ear pain, ear discharge, nose pain, nose discharge, nose congestion Respiratory: denies: cough, dry, shortness of breath, hemoptysis, SOB with excertion, pleuritic pain, sputum Cardiovascular: denies: chest pain, palpitations, orthopnea, paroxysmal noc. dyspnea, edema, light headedness Gastrointestinal: denies: nausea, vomiting, abdominal pain, diarrhea, constipation, melena, hematochezia Genitourinary: denies: dysuria, frequency, incontinence, hematuria, retention Hospitalist History - Past Medical History Cardiac: reports: AFIB Pulmonary: denies: CVA/TIA/stroke, lung disease AWNING CRAFTSMAN: denies: Migraine, Seizure, Vertigo Gastrointestinal: reports: GI bleed, Gastritis Hepatobiliary: denies: Cirrhosis Rheumatologic: reports: Fibromyalgia Renal/: reports: Acute renal failure Endocrine: reports: Diabetes (patient denies but per EMR, was reported to have type I, type II. Likely secondary diabetes due to alcohol abuse). denies: Hyperthyroidism, Hypothyroidism - Past Surgical History Other Surgical History: cervical hardware for repair of spondylosis - Family History Family History: reports: hypertension - Social History Smoking Status: Former smoker Tobacco Type: cigarettes Alcohol: reports: Heavy Living Situation: With Family (with daughter) Activity level: independent ambulation - Exam General Appearance: NAD, awake alert Eye: PERRL, anicteric sclera Neck: no JVD Heart: no murmur, no gallops, no rubs Heart - other findings: regular rhythm, bradycardic (patient endorses that to be her baseline) Respiratory: CTAB, no wheezes, no rales, no ronchi Gastrointestinal: soft, non-tender, non-distended, normal bowel sounds Extremities: no edema Neurological: cranial nerve grossly intact, normal sensation to touch, no weakness, no focal deficits. negative: hemiplegia Neurological - other findings: sluggish speech; mild right upper forehead droop , otherwise unremarkable Psychiatric: normal affect, normal behavior, A&O x 3 Hospitalist Results - Labs Result Diagrams: 11/16/19 11:02 11/16/19 16:39 Lab results: WBC 7.4 thou/uL (4.8-10.8) 11/16/19 11:02 Hgb 14.9 g/dL (12.0-16.0) 11/16/19 11:02 Hct 44.2 % (36.0-47.0) 11/16/19 11:02 MCV 96.8 fL (78.0-98.0) 11/16/19 11:02 Plt Count 232 thou/uL (130-400) 11/16/19 11:02 Neutrophils % 70.6 % (42.0-75.0) 11/16/19 11:02 Sodium 125 mmol/L (136-145) L 11/16/19 16:39 Potassium 3.3 mmol/L (3.5-5.1) L 11/16/19 16:39 Chloride 91 mmol/L (98-107) L 11/16/19 16:39 Carbon Dioxide 18 mmol/L (23-31) L 11/16/19 16:39 BUN 23 mg/dL (9.8-20.1) H 11/16/19 16:39 Creatinine 1.20 mg/dL (0.6-1.1) H 11/16/19 16:39 Glucose 202 mg/dL (80-115) H 11/16/19 16:39 Calcium 8.1 mg/dL (7.8-10.44) 11/16/19 16:39 Total Bilirubin 1.6 mg/dL (0.2-1.2) H 11/16/19 11:02 AST 154 U/L (5-34) H 11/16/19 11:02 ALT 92 U/L (8-55) H 11/16/19 11:02 Alkaline Phosphatase 131 U/L (40-110) H 11/16/19 11:02 Ammonia 34 umol/L (18-72) 11/16/19 11:02 Creatine Kinase 306 U/L (29-168) H 11/16/19 11:02 CK-MB (CK-2) 6.1 ng/mL (0-6.6) 11/16/19 11:02 Troponin I 0.026 ng/mL (< 0.028) 11/16/19 16:39 Serum Total Protein 6.7 g/dL (6.0-8.3) 11/16/19 11:02 Albumin 4.0 g/dL (3.4-4.8) 11/16/19 11:02 Lipase 60 U/L (8-78) 11/16/19 11:02 Urine Ketones Negative mg/dL (Negative) 11/16/19 11:11 Urine Blood Negative (Negative) 11/16/19 11:11 Urine Nitrite Negative (Negative) 11/16/19 11:11 Ur Leukocyte Esterase Negative Rosa/uL (Negative) 11/16/19 11:11 - EKG Interpretation EKG: Sinus bradycardia with no evidence of new ischemia - Radiology Interpretation CT scan - head Status: report reviewed by sc Hospitalist H&P A/P - Problem (1) Alcohol intoxication Status: Acute (2) High anion gap metabolic acidosis Code(s): E87.2 - ACIDOSIS Status: Acute (3) Cervical spinal stenosis Code(s): M48.02 - SPINAL STENOSIS, CERVICAL REGION Status: Acute (4) Atrial fibrillation status post cardioversion Code(s): I48.91 - UNSPECIFIED ATRIAL FIBRILLATION Status: Resolved - Plan Plan: #alcohol intoxication -elevated blood alcohol level -recurrent falls likely due to intoxication induced uncoordination -reported withdrawal symptoms in the past * ASE protocol * fall risk * education and resources on discharge * #anion gap metabolic acidosis #chronic hypotonic hyponatremia #prerenal BJ -with concurrent metabolic alkalosis based on delta delta gap -acidosis likely result of lactic acidosis due to alcohol abuse (ketone -ve), alkalosis likely result of contraction due to deyhdration * IVF D5W/NS 125cc/hr; rate of correction of Na 4-6meq / 24hr * thiamine * correct electrolytes * #diabetes -per EMR, type 1, type 2; but may be secondary due to alcoholic pancreatitis resulting in diabetes -started on weight based regimen with correction and hypoglycemia protocol #dispo/PPx -full code. daughter is surrogate -DVT PPx- SCDs -GI PPx pantoprazole 40mg IVP daily considering significant UGI history
[2019-11-16] MEDS ORDERED: Thiamine HCl 200 MG/2 ML VIAL SLOW IVP SCH (18:00)
[2019-11-16] MEDS ORDERED: HumaLOG 300 UNITS/3 ML VIAL SC SCH (21:00)
[2019-11-16] MEDS: Insulin Glargine 15 UNITS in Pre-Filled Syringe 1 EACH SC SCH (21:33)
[2019-11-16] MEDS: traZODone HCl 50 MG TAB PO SCH (21:34)
[2019-11-16] MEDS: busPIRone HCl 10 MG TAB PO SCH (21:34)
[2019-11-16] MEDS: Pregabalin 75 MG CAP PO SCH (21:34)
[2019-11-16] MEDS: Zolpidem Tartrate 5 MG TAB PO SCH (21:34)
[2019-11-16] MEDS: NS 0.9% w/ 20 MEQ KCL 1,000 ML/1,000 ML BAG IV SCH (21:35)
[2019-11-16 22:39] LABS: Anion Gap 17 mmol/L (10-20); BUN (Urea Nitrogen) 27 mg/dL (9.8-20.1); Calc. Creatinine Clearance 45 mL/min (70-130); Calcium 8.2 mg/dL (7.8-10.44); Carbon Dioxide 21 mmol/L (23-31); Chloride 91 mmol/L (98-107); Estimated GFR-MDRD 34; Glucose 182 mg/dL (80-115); Sodium 126 mmol/L (136-145)
[2019-11-17] MEDS: NS 0.9% w/ 20 MEQ KCL 1,000 ML/1,000 ML BAG IV SCH ×4 (05:33→21:24)
[2019-11-17 06:15] LABS: Phosphorus 2.8 mg/dL (2.3-4.7)
[2019-11-17 06:17] LABS: Anion Gap 15 mmol/L (10-20); BUN (Urea Nitrogen) 23 mg/dL (9.8-20.1); Calc. Creatinine Clearance 52 mL/min (70-130); Calcium 7.9 mg/dL (7.8-10.44); Carbon Dioxide 23 mmol/L (23-31); Chloride 96 mmol/L (98-107); Estimated GFR-MDRD 40; Glucose 150 mg/dL (80-115); Potassium 3.1 mmol/L (3.5-5.1); Sodium 131 mmol/L (136-145)
[2019-11-17] MEDS ORDERED: Enoxaparin Sodium 30 MG/0.3 ML SYRINGE SC SCH (09:00)
[2019-11-17] MEDS: Pregabalin 75 MG CAP PO SCH ×2 (09:30→21:26)
[2019-11-17] MEDS: busPIRone HCl 10 MG TAB PO SCH ×2 (09:30→21:26)
[2019-11-17] MEDS: Folic Acid/Vit B Comp W-C PO SCH (09:30)
[2019-11-17] MEDS ORDERED: Sodium Chloride 0.9% 1,000 ML IV SCH ×2 (11:45→17:30)
[2019-11-17] MEDS: Potassium Chloride 20 MEQ TAB PO SCH ×2 (12:49→17:29)
--- NOTE | 2019-11-17 13:14 | PDOC.HOSPP ---
- Subjective Encounter Date: 11/17/19 Encounter Time: 10:00 Subjective: no overnight events. This morning, complains of continued fatigue. Has orthostatic hypotension. pending further management - Objective Vital Signs & Weight: Vital Signs (12 hours) Temp Pulse Pulse Pulse Pulse Resp BP 11/17/19 11:36 98 F 55 L 14 11/17/19 10:14 53 L 55 L 11/17/19 09:00 57 L 53 L 53 L 160/72 H 11/17/19 08:00 98.1 F 51 L 14 11/17/19 04:40 98.8 F 54 L 14 11/17/19 01:20 98.3 F 50 L 16 BP BP BP BP BP BP Pulse Ox 11/17/19 11:36 130/70 96 11/17/19 10:14 105/61 102/61 11/17/19 09:00 133/66 77/52 L 96/54 L 133/69 11/17/19 08:00 160/72 H 94 L 11/17/19 04:40 131/60 97 11/17/19 01:20 111/57 L 95 Weight Admit Weight 180 lb 5.92 oz Weight 180 lb 6 oz I&O: 11/16/19 11/17/19 11/18/19 06:59 06:59 06:59 Intake Total 1531 Output Total 1210 Balance 321 Result Diagrams: 11/16/19 11:02 11/17/19 05:29 Additional Labs: Accuchecks 11/17/19 11/17/19 11/16/19 10:18 05:38 17:39 POC Glucose 199 H 163 H 263 H 11/16/19 10:58 POC Glucose 193 H Hospitalist ROS - Review of Systems Constitutional: reports: weakness. denies: fever, chills, sweats, malaise, other Respiratory: denies: cough, dry, shortness of breath, hemoptysis, SOB with excertion, pleuritic pain, sputum, wheezing, other Cardiovascular: denies: chest pain, palpitations, orthopnea, paroxysmal noc. dyspnea, edema, light headedness, other Gastrointestinal: denies: nausea, vomiting, abdominal pain, diarrhea, constipation, melena, hematochezia, other Genitourinary: denies: dysuria, frequency, incontinence, hematuria, retention, other - Medication Medications: Active Medications Generic Name Dose Route Start Last Admin Trade Name Freq PRN Reason Stop Dose Admin Buspirone HCl 10 mg 11/16/19 21:00 11/17/19 09:30 Buspar PO 10 mg BID BREANNA Administration Insulin Glargine 15 units/ 0.15 mls @ 0 mls/hr 11/16/19 21:00 11/16/19 21:33 Miscellaneous Medication SC 0.15 mls HS BREANNA Administration Potassium Chloride/Sodium Chloride 1,000 ml in 1,000 mls @ 125 mls/hr 18:45 11/17/19 05:33 Ns 0.9% W/ 20 Meq Kcl IV 1,000 mls .Q8H BREANNA Administration Insulin Human Lispro 0 units 11/16/19 17:29 11/17/19 06:19 Humalog SC 2 unit .MILD SLIDING SCALE PRN Administration Mild Correctional Scale Potassium Chloride 40 meq 11/17/19 11:45 11/17/19 12:49 K-Dur PO 11/17/19 15:46 40 meq Q4H BREANNA Administration Pregabalin 150 mg 11/16/19 21:00 11/17/19 09:30 Lyrica PO 150 mg BID BREANNA Administration Trazodone HCl 50 mg 11/16/19 21:00 11/16/19 21:34 Desyrel PO 50 mg HS BREANNA Administration Vitamin B Complex/Vit C/Folic Acid 1 tab 11/17/19 09:00 11/17/19 09:30 Nephro-Antonio Tablet PO 1 tab DAILY BREANNA Administration Zolpidem Tartrate 10 mg 11/16/19 21:00 11/16/19 21:34 Ambien PO 10 mg HS BREANNA Administration - Exam General Appearance: NAD, awake alert Heart: no murmur, no gallops, no rubs Heart - other findings: reuglar rhythm, bradycardic (baseline) Respiratory: CTAB, no wheezes, no rales, no ronchi, normal chest expansion, no tachypnea, normal percussion Gastrointestinal: soft, non-tender, non-distended, normal bowel sounds, no palpable masses, no hepatomegaly, no splenomegaly, no bruit Extremities: no edema Psychiatric: normal affect, normal behavior, A&O x 3 Hosp A/P (1) Orthostatic hypotension Code(s): I95.1 - ORTHOSTATIC HYPOTENSION Status: Acute (2) High anion gap metabolic acidosis Code(s): E87.2 - ACIDOSIS Status: Acute (3) Cervical spinal stenosis Code(s): M48.02 - SPINAL STENOSIS, CERVICAL REGION Status: Acute (4) Atrial fibrillation status post cardioversion Code(s): I48.91 - UNSPECIFIED ATRIAL FIBRILLATION Status: Resolved - Plan #orthostatic hypotension -give IVF boluses and recheck -likely due to dehydration/alcohol or diabetes-induced autonomic neuropathy #Alcohol abuse -considering has history of withdrawal induced delirium and last drink within past 24 hours, high risk for major withdrawal; will continue to observe # atrial fibrillation -remains sinus ELOS 1 midnight
[2019-11-17] MEDS: Insulin Glargine 15 UNITS in Pre-Filled Syringe 1 EACH SC SCH (21:24)
[2019-11-17] MEDS: traZODone HCl 50 MG TAB PO SCH (21:27)
[2019-11-17] MEDS: Zolpidem Tartrate 5 MG TAB PO SCH (21:27)
[2019-11-18] MEDS: NS 0.9% w/ 20 MEQ KCL 1,000 ML/1,000 ML BAG IV SCH (03:45)
[2019-11-18 05:25] LABS: Anion Gap 13 mmol/L (10-20); BUN (Urea Nitrogen) 11 mg/dL (9.8-20.1); Calc. Creatinine Clearance 79 mL/min (70-130); Calcium 7.5 mg/dL (7.8-10.44); Carbon Dioxide 17 mmol/L (23-31); Chloride 109 mmol/L (98-107); Estimated GFR-MDRD 62; Glucose 122 mg/dL (80-115); Magnesium 1.6 mg/dL (1.6-2.6); Potassium 4.3 mmol/L (3.5-5.1); Sodium 135 mmol/L (136-145)
[2019-11-18] MEDS: Folic Acid/Vit B Comp W-C PO SCH (08:49)
[2019-11-18] MEDS: busPIRone HCl 10 MG TAB PO SCH (08:49)
[2019-11-18] MEDS: Pregabalin 75 MG CAP PO SCH (08:49)
[2019-11-18] MEDS ORDERED: Labetalol HCl 100 MG/20 ML VIAL SLOW IVP SCH (09:15)
[2019-11-18] MEDS ORDERED: Lisinopril/Hydrochlorothiazide 10 mg/12.5 mg Tablet PO SCH (09:15)
[2019-11-18] MEDS ORDERED: Lorazepam 2 MG/ML VIAL SLOW IVP SCH (11:00)
[2019-11-18] MEDS ORDERED: Labetalol HCl 100 MG/20 ML VIAL SLOW IVP PRN ×2 (11:02→11:32)
[2019-11-18 11:43] VITALS: TEMP 98.2
[2019-11-18 16:21] VITALS: BP 157/70
[2019-11-18] MEDS ORDERED: Lisinopril/Hydrochlorothiazide 20 mg/12.5 mg Tablet PO SCH (21:00)
--- NOTE | 2019-11-19 09:56 | DIS ---
DATE OF ADMISSION: 11/16/2019 DATE OF DISCHARGE: 11/18/2019 HOSPITAL COURSE: Ms. Troy is a 69-year-old female with a medical history of chronic alcohol abuse, alcohol withdrawal, atrial fibrillation, who presents after a fall. She was diagnosed with alcohol intoxication and orthostatic hypotension. Orthostatic hypotension resolved after supplementation with IV fluids. Withdrawal symptoms were observed for almost 48 hours without any signs of alcohol withdrawal. The patient also had grossly elevated blood pressure that was treated with her home regimen to which she responded promptly. PHYSICAL EXAMINATION: VITAL SIGNS: Blood pressure 157/70, heart rate 72, respirations 20, temperature 98.2 Fahrenheit. GENERAL: Lying comfortably in bed, in no apparent distress. CARDIAC: Regular rhythm, bradycardic, which is her baseline. No murmurs, gallops, or rubs. RESPIRATORY: Clear to auscultation bilaterally. No wheezes, rales, or rhonchi. Normal chest expansion. No tachypnea. GI: Soft, nontender, nondistended. Normal bowel sounds. EXTREMITIES: No edema. PSYCHIATRIC: Normal affect. Normal behavior. NEUROLOGIC: Alert and oriented x3. DISCHARGE MEDICATIONS: Continued medications: 1. Pregabalin. 2. Zolpidem. 3. Tizanidine. 4. Metoprolol. 5. Trazodone. 6. Buspirone. 7. Apixaban. 8. Lisinopril/hydrochlorothiazide. New medications: None. Job ID: [id number]
== END 2019-11-18 18:55 | disposition home or self-care (01) | DRG 897 ==
LOC: ERS 10:50 → 2SE 15:39 → OBSVTOIN 15:39 → 2NO 11-17 18:21
PROVIDERS: ADMIT Internal Medicine; ATTEND Internal Medicine
DX: F10.129 Alcohol abuse with intoxication, unspecified (principal); E87.2 Acidosis; E87.1 Hypo-osmolality and hyponatremia; N17.9 Acute kidney failure, unspecified; E87.3 Alkalosis; E10.43 Type 1 diabetes mellitus with diabetic autonomic (poly)neuropathy; E86.0 Dehydration; I95.1 Orthostatic hypotension; F32.9 Major depressive disorder, single episode, unspecified; I48.91 Unspecified atrial fibrillation; M79.7 Fibromyalgia; Z98.1 Arthrodesis status; Z88.5 Allergy status to narcotic agent; Z79.899 Other long term (current) drug therapy
CPT/HCPCS: 36415; 36416; 51701; 70450; 71045; 72125; 72170; 80048; 80053; 80306; 80307; 81003; 82010; 82140; 82550; 82553; 83690; 83735; 83930; 83935; 84100; 84300; 84443; 84484; 85025; 93005; 96361; 96374; A4353; J1815; J2310; J3411; J3480